=== PATIENT | male | born 1970 | race Caucasian/White ===

== ENCOUNTER 2017-04-24 17:38 | Inpatient (IN) ==
[2017-04-24] MEDS ORDERED: ONDANSETRON ODT 4 MG TABLET PO STA (17:54)
[2017-04-24] MEDS ORDERED: ONDANSETRON ODT 4 MG TABLET PO ONE (17:56)
[2017-04-24] MEDS ORDERED: ONDANSETRON 4 MG/2 ML VIAL IV STA ×2 (18:21→21:32)
[2017-04-24] MEDS ORDERED: HYDROmorphone 2 MG/1 ML VIAL IV STA ×2 (18:21→21:32)
[2017-04-24] MEDS ORDERED: ONDANSETRON 4 MG/2 ML VIAL ONE ×2 (18:21→21:31)
[2017-04-24] MEDS ORDERED: SODIUM CHLORIDE 0.9% 1,000 ML IV STA ×3 (18:21→21:37)
[2017-04-24] MEDS ORDERED: HYDROmorphone 2 MG/1 ML VIAL ONE ×2 (18:21→21:31)
[2017-04-24 18:45] LABS: Basophils % 0.2 % (0.0-0.8); Eosinophils % 0.2 % (0.00-10.9); Hematocrit 40.5 VOL% (42.0-52.0); Hemoglobin 13.4 GM/DL (14.0-18.0); Immature Granulocytes % 0.5 %; Immature Granulocytes Absolute 0.07 #; Lymphocytes # 0.4 10*3/uL (1.4-4.0); Lymphocytes % 2.8 % (21.2-54.2); Mean Corpuscular HGB Conc 33.1 GM/DL (32-36); Mean Corpuscular Hemoglobin 30 PG (27-34); Mean Corpuscular Volume 90.6 FL (87-102); Mean Platelet Volume 11.9 FL (9.6-12.0); Monocytes # 1.2 10*3/uL (0.11-0.8); Monocytes % 8.4 % (1.7-12.7); Neutrophils % 87.9 % (38.7-73.9); Platelet Count 204 T/CUMM (130-400); Red Blood Count 4.47 MC/CUMM (3.8-5.5); White Blood Count 13.7 T/CUMM (4-12)
[2017-04-24 19:06] LABS: Albumin 3.3 G/DL (3.4-5.0); Bilirubin,Total 0.6 MG/DL (0.2-1.0); Calcium 9.4 MG/DL (8.5-10.1); Osmolality,Calculated 279.7 MOS/KG (273-304); Total Protein 8.4 G/DL (6.4-8.3)
[2017-04-24 19:43] LABS: Lymphocytes 5 % (20-55); Platelet Estimate Normal; Segmented Neutrophils 89 % (50-85); Total Cells Counted 100
[2017-04-24] MEDS ORDERED: SODIUM BICARB INJ 100 MEQ in STERILE WATER INJ 400 ML IV PRN (21:31)
[2017-04-24] MEDS ORDERED: MAGNESIUM SULF RIDER 4 GM in PREMIX 1 EACH IV PRN (21:31)
[2017-04-24] MEDS ORDERED: SODIUM PHOSPHATE INJ 17.6 MMOL in SODIUM CHLORIDE 0.9% 250 ML IV PRN (21:31)
[2017-04-24] MEDS ORDERED: DEXTROSE 50% 25 GM/50 ML VIAL IV PRN (21:31)
[2017-04-24] MEDS ORDERED: ALBUTEROL 2.5 MG/3 ML NEB RESP TX PRN (21:31)
[2017-04-24 21:57] LABS: Magnesium 2.2 MG/DL (1.8-2.4); Phosphorous 3.6 MG/DL (2.5-4.9)
[2017-04-24] MEDS ORDERED: INSULIN REGULAR DRIP 100 ML IV SCH (22:00)
[2017-04-24] MEDS ORDERED: INSULIN REGULAR DRIP 100 ML IV ONE ×2 (22:43→22:47)
[2017-04-24 22:44] LABS: ABG Base Excess -5.5 MMOL/L (-2.5-2.5); ABG HCO3 19.9 MMOL/L (20-26); ABG Oxygen Saturation 95.7 % (95-100); ABG PH 7.314 (7.35-7.45); ABG PO2 77.5 MM HG (80-95); ABG TCO2 18.5 MMOL/L (23-27); Allen Test Positive; Pt O2 Delivery Device Room Air
[2017-04-24] MEDS: SODIUM CHLORIDE 0.45% 1,000 ML IV SCH (23:40)
[2017-04-24] MEDS: DEXTROSE 5% NACL 0.45% 1,000 ML IV SCH (23:55)
[2017-04-25] MEDS ORDERED: LEVOFLOXACIN INJ 100 ML IV ONE (00:50)
[2017-04-25 00:51] LABS: Calcium 7.5 MG/DL (8.5-10.1); Osmolality,Calculated 286.4 MOS/KG (273-304); Potassium 3.8 MMOL/L (3.5-5.1)
[2017-04-25] MEDS ORDERED: ONDANSETRON 4 MG/2 ML VIAL ONE ×3 (01:27→10:41)
[2017-04-25] MEDS: ONDANSETRON 4 MG/2 ML VIAL IV PRN ×4 (01:28→22:32)
[2017-04-25] MEDS ORDERED: LEVOFLOXACIN INJ 500 MG in PREMIX 1 EACH IV ONE (01:30)
[2017-04-25 01:57] LABS: Apearance,Urine CLOUDY (Clear); Bilirubin,Urine Negative (Negative); Blood, Urine Small mg/dL (Negative); Glucose,Urine (UA) >=500 mg/dL (Negative); Granular Casts,Urine 69 /LPF (0-1); Hyaline Casts,Urine 58 /LPF (0-3); Ketones,Urine 5 mg/dL (Negative); Mucus,Urine Occasional /LPF (Occasional); Nitrite,Urine Negative (Negative); Protein,Urine >=500 MG/DL; RBC,Urine 2 /HPF (0-4); Sperm,Urine Occasional /HPF (Negative); Squamous Epithelial Cell,Urine Occasional /HPF (0-10); Urine Color Yellow (Yellow); Urine Specific Gravity 1.013 (1.001-1.035); Urine Urobilinogen < 2.0 EU/DL (0.2-1.0); WBC,Urine 9 /HPF (0-6)
[2017-04-25 05:49] LABS: Calcium 8.3 MG/DL (8.5-10.1); Osmolality,Calculated 278.8 MOS/KG (273-304); Potassium 3.8 MMOL/L (3.5-5.1)
[2017-04-25 05:57] LABS: Basophils % 0.2 % (0.0-0.8); Eosinophils # 0.1 10*3/uL (0.0-0.87); Eosinophils % 0.8 % (0.00-10.9); Immature Granulocytes % 0.3 %; Immature Granulocytes Absolute 0.03 #; Lymphocytes # 0.4 10*3/uL (1.4-4.0); Lymphocytes % 4.7 % (21.2-54.2); Mean Corpuscular HGB Conc 32.7 GM/DL (32-36); Mean Corpuscular Hemoglobin 30 PG (27-34); Mean Corpuscular Volume 91.9 FL (87-102); Mean Platelet Volume 12.3 FL (9.6-12.0); Monocytes % 10.4 % (1.7-12.7); Neutrophils # 7.7 10*3/uL (1.4-7.4); Neutrophils % 83.6 % (38.7-73.9); Platelet Count 181 T/CUMM (130-400); Red Blood Count 3.59 MC/CUMM (3.8-5.5); Red Cell Distribution Width 14.3 % (9.3-17.3)
[2017-04-25 06:06] LABS: Hemoglobin 10.8 GM/DL (14.0-18.0); White Blood Count 9.2 T/CUMM (4-12)
[2017-04-25 06:18] LABS: Band Neutrophils 1 % (0-10); Eosinophils 1 % (0-10); Lymphocytes 6 % (20-55); Platelet Estimate Normal; Segmented Neutrophils 84 % (50-85); Total Cells Counted 100
[2017-04-25 06:19] LABS: Burr Cells Slight; Giant Platelets Few; Hypochromasia Slight; Ovalocytes Slight
[2017-04-25] MEDS ORDERED: PROMETHAZINE INJ 12.5 MG in SODIUM CHLORIDE 0.9% 50 ML IV PRN (08:34)
[2017-04-25] MEDS ORDERED: PROMETHAZINE 25 MG/1 ML VIAL IM STA (08:39)
[2017-04-25] MEDS ORDERED: ENOXAPARIN 40 MG/0.4 ML SYRINGE ONE (08:43)
[2017-04-25] MEDS ORDERED: PROMETHAZINE 25 MG/1 ML VIAL ONE (08:43)
[2017-04-25] MEDS: DEXTROSE 5% NACL 0.45% 1,000 ML IV SCH ×3 (08:47→22:31)
[2017-04-25] MEDS: ENOXAPARIN 40 MG/0.4 ML SYRINGE SUBCUT SCH (08:48)
[2017-04-25 11:12] LABS: Calcium 8.4 MG/DL (8.5-10.1); Osmolality,Calculated 279.7 MOS/KG (273-304); Potassium 3.7 MMOL/L (3.5-5.1)
[2017-04-25] MEDS ORDERED: GLUCAGON 1 MG VIAL IM PRN (11:50)
[2017-04-25] MEDS ORDERED: DEXTROSE 50% 25 GM/50 ML VIAL IV PRN (11:50)
[2017-04-25] MEDS ORDERED: PROMETHAZINE 25 MG/1 ML VIAL IM PRN (11:53)
[2017-04-25] MEDS: SODIUM CHLORIDE 0.45% 1,000 ML IV SCH ×2 (11:57→13:56)
[2017-04-25] MEDS: INSULIN LISPRO 100 UNIT/ML SUBCUT SCH ×3 (13:49→21:25)
[2017-04-25 16:02] LABS: Potassium 4.1 MMOL/L (3.5-5.1)
[2017-04-25] MEDS ORDERED: INSULIN NPH 100 UNIT/ML SUBCUT SCH (16:30)
[2017-04-25] MEDS: hydrALAZINE 20 MG/1 ML VIAL IV PRN (17:09)
[2017-04-25] MEDS ORDERED: METOCLOPRAMIDE 10 MG/2 ML VIAL IV SCH (18:00)
[2017-04-25] MEDS: PANTOPRAZOLE 40 MG VIAL IV SCH (21:24)
[2017-04-26] MEDS: hydrALAZINE 20 MG/1 ML VIAL IV PRN (00:37)
[2017-04-26] MEDS ORDERED: LEVOFLOXACIN INJ 250 MG in PREMIX 1 EACH IV ONE (01:30)
[2017-04-26] MEDS: INSULIN LISPRO 100 UNIT/ML SUBCUT SCH ×6 (02:47→22:52)
[2017-04-26 04:28] LABS: Basophils % 0.2 % (0.0-0.8); Eosinophils # 0.2 10*3/uL (0.0-0.87); Eosinophils % 1.5 % (0.00-10.9); Hematocrit 30.9 VOL% (42.0-52.0); Hemoglobin 10.4 GM/DL (14.0-18.0); Immature Granulocytes % 0.4 %; Immature Granulocytes Absolute 0.04 #; Lymphocytes # 0.7 10*3/uL (1.4-4.0); Mean Corpuscular HGB Conc 33.7 GM/DL (32-36); Mean Corpuscular Hemoglobin 31 PG (27-34); Mean Corpuscular Volume 90.9 FL (87-102); Mean Platelet Volume 11.4 FL (9.6-12.0); Monocytes # 1.2 10*3/uL (0.11-0.8); Monocytes % 11.4 % (1.7-12.7); Neutrophils # 8.7 10*3/uL (1.4-7.4); Neutrophils % 80.5 % (38.7-73.9); Platelet Count 223 T/CUMM (130-400); Red Cell Distribution Width 14.2 % (9.3-17.3); White Blood Count 10.8 T/CUMM (4-12)
[2017-04-26 05:06] LABS: Calcium 8.1 MG/DL (8.5-10.1); Osmolality,Calculated 279.8 MOS/KG (273-304); Potassium 3.6 MMOL/L (3.5-5.1)
[2017-04-26] MEDS: ONDANSETRON 4 MG/2 ML VIAL IV PRN ×2 (07:24→20:48)
[2017-04-26] MEDS ORDERED: INSULIN NPH 100 UNIT/ML SUBCUT SCH (07:30)
[2017-04-26] MEDS ORDERED: BISACODYL 10 MG SUPP RECTAL ONE (08:19)
[2017-04-26] MEDS: PANTOPRAZOLE 40 MG VIAL IV SCH ×2 (09:56→20:53)
[2017-04-26] MEDS: ENOXAPARIN 40 MG/0.4 ML SYRINGE SUBCUT SCH (09:58)
[2017-04-26] MEDS: DEXTROSE 5% NACL 0.45% 1,000 ML IV SCH ×2 (12:16→15:00)
[2017-04-26] MEDS ORDERED: ERYTHROMYCIN INJ 250 MG in SODIUM CHLORIDE 0.9% 100 ML IV SCH (17:00)
[2017-04-26] MEDS: INSULIN NPH 100 UNIT/ML SUBCUT SCH (17:13)
[2017-04-26] MEDS: AZITHROMYCIN IV SCH (18:18)
[2017-04-26] MEDS: SODIUM CHLORIDE 0.9% IV SCH (18:18)
[2017-04-27] MEDS ORDERED: KETOROLAC 15 MG/1 ML VIAL IV ONE (01:37)
[2017-04-27] MEDS: INSULIN LISPRO 100 UNIT/ML SUBCUT SCH ×6 (02:02→22:18)
[2017-04-27] MEDS: DEXTROSE 5% NACL 0.45% 1,000 ML IV SCH ×2 (02:02→07:00)
[2017-04-27 05:07] LABS: Calcium 7.9 MG/DL (8.5-10.1); Magnesium 1.6 MG/DL (1.8-2.4); Osmolality,Calculated 277.4 MOS/KG (273-304); Potassium 3.2 MMOL/L (3.5-5.1)
[2017-04-27] MEDS: SODIUM CHLORIDE 0.9% IV SCH (05:49)
[2017-04-27] MEDS: AZITHROMYCIN IV SCH (05:49)
[2017-04-27] MEDS: hydrALAZINE 20 MG/1 ML VIAL IV PRN ×2 (07:32→21:27)
[2017-04-27] MEDS: ONDANSETRON 4 MG/2 ML VIAL IV PRN ×3 (08:13→21:24)
[2017-04-27] MEDS: MAGNESIUM SULF RIDER 2 GM in PREMIX 1 EACH IV PRN (08:22)
[2017-04-27] MEDS ORDERED: ACETAMINOPHEN 650 MG SUPP RECTAL PRN (09:36)
[2017-04-27] MEDS: PANTOPRAZOLE 40 MG VIAL IV SCH ×2 (09:47→21:30)
[2017-04-27] MEDS: ENOXAPARIN 40 MG/0.4 ML SYRINGE SUBCUT SCH (09:51)
[2017-04-27] MEDS: ACETAMINOPHEN 325 MG TABLET PO PRN ×2 (09:54→18:04)
[2017-04-27] MEDS: INSULIN NPH 100 UNIT/ML SUBCUT SCH ×2 (10:37→18:09)
[2017-04-27] MEDS: SODIUM CHLOR 0.9% KCL 20 MEQ 20 MEQ/1,000 ML BAG IV SCH ×2 (10:51→23:52)
[2017-04-27] MEDS: POTASSIUM CHLORIDE RIDER 10 MEQ in PREMIX 1 EACH IV PRN ×4 (10:54→21:33)
[2017-04-28] MEDS: INSULIN LISPRO 100 UNIT/ML SUBCUT SCH ×6 (02:49→21:59)
[2017-04-28] MEDS ORDERED: AZITHROMYCIN INJ 250 MG in SODIUM CHLORIDE 0.9% 150 ML IV SCH (06:00)
[2017-04-28] MEDS ORDERED: FAMOTIDINE 20 MG/2 ML VIAL IV ONE (06:00)
[2017-04-28 06:30] LABS: Basophils % 0.2 % (0.0-0.8); Eosinophils # 0.1 10*3/uL (0.0-0.87); Eosinophils % 1.1 % (0.00-10.9); Hematocrit 28.6 VOL% (42.0-52.0); Hemoglobin 9.5 GM/DL (14.0-18.0); Immature Granulocytes % 0.8 %; Immature Granulocytes Absolute 0.09 #; Lymphocytes # 0.8 10*3/uL (1.4-4.0); Lymphocytes % 7.9 % (21.2-54.2); Mean Corpuscular HGB Conc 33.2 GM/DL (32-36); Mean Corpuscular Hemoglobin 30 PG (27-34); Mean Corpuscular Volume 90.5 FL (87-102); Mean Platelet Volume 11.1 FL (9.6-12.0); Monocytes # 1.3 10*3/uL (0.11-0.8); Neutrophils # 8.4 10*3/uL (1.4-7.4); Platelet Count 266 T/CUMM (130-400); Red Blood Count 3.16 MC/CUMM (3.8-5.5); Red Cell Distribution Width 14.3 % (9.3-17.3); White Blood Count 10.7 T/CUMM (4-12)
[2017-04-28] MEDS: ONDANSETRON 4 MG/2 ML VIAL IV PRN ×2 (07:18→17:00)
[2017-04-28] MEDS: INSULIN NPH 100 UNIT/ML SUBCUT SCH ×2 (08:47→17:12)
[2017-04-28] MEDS: ENOXAPARIN 40 MG/0.4 ML SYRINGE SUBCUT SCH (10:05)
[2017-04-28] MEDS: PANTOPRAZOLE 40 MG VIAL IV SCH ×2 (10:05→20:26)
[2017-04-28] MEDS ORDERED: PROPOFOL 200 MG/20 ML VIAL IV ONE ×2 (10:06→10:08)
[2017-04-28] MEDS ORDERED: PHENYLEPHRINE 0.5% NASAL SPRAY 15 ML BOTTLE BOTH NARES ONE (10:07)
[2017-04-28] MEDS: PROMETHAZINE INJ 25 MG in SODIUM CHLORIDE 0.9% 50 ML IV PRN ×2 (12:40→20:24)
[2017-04-28] MEDS: SODIUM CHLOR 0.9% KCL 20 MEQ 20 MEQ/1,000 ML BAG IV SCH ×2 (14:37→19:03)
[2017-04-28] MEDS: hydrALAZINE 20 MG/1 ML VIAL IV PRN (20:24)
[2017-04-29] MEDS: SODIUM CHLOR 0.9% KCL 20 MEQ 20 MEQ/1,000 ML BAG IV SCH ×4 (00:37→22:36)
[2017-04-29] MEDS: INSULIN LISPRO 100 UNIT/ML SUBCUT SCH ×6 (02:44→22:37)
[2017-04-29] MEDS: hydrALAZINE 20 MG/1 ML VIAL IV PRN ×3 (02:45→22:42)
[2017-04-29 04:45] LABS: Basophils % 0.2 % (0.0-0.8); Eosinophils # 0.1 10*3/uL (0.0-0.87); Eosinophils % 0.6 % (0.00-10.9); Hematocrit 29.3 VOL% (42.0-52.0); Hemoglobin 9.6 GM/DL (14.0-18.0); Immature Granulocytes % 1.4 %; Immature Granulocytes Absolute 0.19 #; Lymphocytes # 0.8 10*3/uL (1.4-4.0); Lymphocytes % 5.4 % (21.2-54.2); Mean Corpuscular HGB Conc 32.8 GM/DL (32-36); Mean Corpuscular Hemoglobin 30 PG (27-34); Mean Corpuscular Volume 92.4 FL (87-102); Monocytes # 1.5 10*3/uL (0.11-0.8); Monocytes % 10.5 % (1.7-12.7); Neutrophils # 11.5 10*3/uL (1.4-7.4); Neutrophils % 81.9 % (38.7-73.9); Platelet Count 325 T/CUMM (130-400); Red Blood Count 3.17 MC/CUMM (3.8-5.5); Red Cell Distribution Width 14.8 % (9.3-17.3)
[2017-04-29 05:08] LABS: Calcium 8.4 MG/DL (8.5-10.1); Magnesium 1.9 MG/DL (1.8-2.4); Osmolality,Calculated 284.3 MOS/KG (273-304); Potassium 4.1 MMOL/L (3.5-5.1)
[2017-04-29] MEDS: PROMETHAZINE INJ 25 MG in SODIUM CHLORIDE 0.9% 50 ML IV PRN ×2 (09:12→20:39)
[2017-04-29] MEDS: ENOXAPARIN 40 MG/0.4 ML SYRINGE SUBCUT SCH (09:14)
[2017-04-29] MEDS: PANTOPRAZOLE 40 MG VIAL IV SCH ×2 (09:15→20:12)
[2017-04-29] MEDS: INSULIN NPH 100 UNIT/ML SUBCUT SCH ×2 (09:18→16:50)
[2017-04-29] MEDS: ONDANSETRON 4 MG/2 ML VIAL IV PRN (16:22)
[2017-04-30] MEDS: INSULIN LISPRO 100 UNIT/ML SUBCUT SCH ×6 (01:22→22:44)
[2017-04-30 03:20] LABS: Basophils % 0.2 % (0.0-0.8); Hematocrit 29.3 VOL% (42.0-52.0); Hemoglobin 9.5 GM/DL (14.0-18.0); Immature Granulocytes % 2.2 %; Immature Granulocytes Absolute 0.36 #; Lymphocytes # 0.7 10*3/uL (1.4-4.0); Lymphocytes % 4.5 % (21.2-54.2); Mean Corpuscular HGB Conc 32.4 GM/DL (32-36); Mean Corpuscular Hemoglobin 30 PG (27-34); Mean Platelet Volume 10.7 FL (9.6-12.0); Monocytes # 1.7 10*3/uL (0.11-0.8); Monocytes % 10.2 % (1.7-12.7); Neutrophils # 13.5 10*3/uL (1.4-7.4); Neutrophils % 82.9 % (38.7-73.9); Platelet Count 390 T/CUMM (130-400); Red Blood Count 3.15 MC/CUMM (3.8-5.5); Red Cell Distribution Width 15.4 % (9.3-17.3); White Blood Count 16.3 T/CUMM (4-12)
[2017-04-30 03:46] LABS: Calcium 8.9 MG/DL (8.5-10.1); Osmolality,Calculated 293.7 MOS/KG (273-304); Potassium 4.5 MMOL/L (3.5-5.1)
[2017-04-30 04:08] LABS: Lymphocytes 11 % (20-55); Myelocytes 1 %; Platelet Estimate Normal; Segmented Neutrophils 83 % (50-85); Total Cells Counted 100
[2017-04-30] MEDS: SODIUM CHLOR 0.9% KCL 20 MEQ 20 MEQ/1,000 ML BAG IV SCH ×3 (06:06→19:04)
[2017-04-30] MEDS: hydrALAZINE 20 MG/1 ML VIAL IV PRN (06:06)
[2017-04-30] MEDS: ONDANSETRON 4 MG/2 ML VIAL IV PRN (09:14)
[2017-04-30] MEDS: PANTOPRAZOLE 40 MG VIAL IV SCH ×2 (09:18→20:26)
[2017-04-30] MEDS: ENOXAPARIN 40 MG/0.4 ML SYRINGE SUBCUT SCH (09:21)
[2017-04-30] MEDS: ACETAMINOPHEN 325 MG TABLET PO PRN (09:22)
[2017-04-30] MEDS: INSULIN NPH 100 UNIT/ML SUBCUT SCH ×2 (09:27→17:00)
[2017-04-30] MEDS ORDERED: cefOXitin 2,000 MG in SYRINGE 1 EACH IV ONE (10:16)
[2017-04-30] MEDS: LACTATED RINGERS 1,000 ML IV SCH ×3 (14:28→16:31)
[2017-04-30] MEDS ORDERED: SUGAMMADEX 200 MG/2 ML VIAL IV ONE (15:53)
[2017-04-30] MEDS ORDERED: ONDANSETRON 4 MG/2 ML VIAL ONE ×2 (16:17→16:24)
[2017-04-30] MEDS ORDERED: HYDROmorphone 2 MG/1 ML VIAL ONE (16:17)
[2017-04-30] MEDS: HYDROmorphone 2 MG/1 ML VIAL IV PRN ×4 (16:18→16:33)
[2017-04-30] MEDS ORDERED: ONDANSETRON 4 MG/2 ML VIAL IV PRN (16:18)
[2017-04-30] MEDS ORDERED: PROPOFOL 200 MG/20 ML VIAL IV ONE (16:23)
[2017-04-30] MEDS ORDERED: SUCCINYLCHOLINE 200 MG/10 ML VIAL ONE (16:24)
[2017-04-30] MEDS ORDERED: fentaNYL 100 MCG/2 ML VIAL ONE (16:24)
[2017-04-30] MEDS ORDERED: DESFLURANE 1 UNIT/15 MINUTE INH ONE (16:24)
[2017-04-30] MEDS ORDERED: MIDAZOLAM 2 MG/2 ML VIAL ONE (16:24)
[2017-04-30] MEDS ORDERED: ROCURONIUM 100 MG/10 ML VIAL IV ONE (16:24)
[2017-04-30 16:27] LABS: Apearance,Urine CLEAR (Clear); Bilirubin,Urine Negative (Negative); Blood, Urine Small mg/dL (Negative); Glucose,Urine (UA) >=500 mg/dL (Negative); Ketones,Urine 80 mg/dL (Negative); Mucus,Urine Occasional /LPF (Occasional); Nitrite,Urine Negative (Negative); Protein,Urine 100 MG/DL; RBC,Urine 20 /HPF (0-4); Urine Color Yellow (Yellow); Urine Specific Gravity 1.011 (1.001-1.035); Urine Urobilinogen < 2.0 EU/DL (0.2-1.0); WBC,Urine 3 /HPF (0-6)
[2017-04-30] MEDS ORDERED: NALOXONE 0.4 MG/ML VIAL IV PRN (16:51)
[2017-04-30] MEDS: HYDROmorphone PCA 30 MG/30 ML SYRINGE IV SCH (16:58)
[2017-04-30] MEDS: CIPROFLOXACIN INJ 400 MG in PREMIX 1 EACH IV SCH (18:28)
[2017-04-30] MEDS: metroNIDAZOLE INJ 500 MG in PREMIX 1 EACH IV SCH (20:26)
[2017-05-01] MEDS: metroNIDAZOLE INJ 500 MG in PREMIX 1 EACH IV SCH ×4 (01:03→20:06)
[2017-05-01] MEDS: INSULIN LISPRO 100 UNIT/ML SUBCUT SCH ×6 (01:03→21:43)
[2017-05-01] MEDS: hydrALAZINE 20 MG/1 ML VIAL IV PRN (01:47)
[2017-05-01] MEDS: SODIUM CHLOR 0.9% KCL 20 MEQ 20 MEQ/1,000 ML BAG IV SCH ×3 (05:49→16:52)
[2017-05-01] MEDS: CIPROFLOXACIN INJ 400 MG in PREMIX 1 EACH IV SCH ×2 (06:01→16:53)
[2017-05-01 06:19] LABS: Basophils % 0.2 % (0.0-0.8); Immature Granulocytes % 1.3 %; Immature Granulocytes Absolute 0.21 #; Lymphocytes # 0.5 10*3/uL (1.4-4.0); Lymphocytes % 3.2 % (21.2-54.2); Mean Corpuscular HGB Conc 32.1 GM/DL (32-36); Mean Corpuscular Hemoglobin 30 PG (27-34); Mean Corpuscular Volume 94.3 FL (87-102); Mean Platelet Volume 11.2 FL (9.6-12.0); Monocytes # 1.4 10*3/uL (0.11-0.8); Monocytes % 8.2 % (1.7-12.7); Neutrophils # 14.5 10*3/uL (1.4-7.4); Neutrophils % 87.1 % (38.7-73.9); Platelet Count 418 T/CUMM (130-400); Red Blood Count 2.97 MC/CUMM (3.8-5.5); Red Cell Distribution Width 16.1 % (9.3-17.3); White Blood Count 16.6 T/CUMM (4-12)
[2017-05-01 06:47] LABS: Band Neutrophils 3 % (0-10); Giant Platelets Few; Hypochromasia 1+; Lymphocytes 3 % (20-55); Ovalocytes Slight; Platelet Estimate Adequate; Segmented Neutrophils 86 % (50-85); Total Cells Counted 100
[2017-05-01 06:52] LABS: Calcium 8.6 MG/DL (8.5-10.1); Osmolality,Calculated 296.6 MOS/KG (273-304); Potassium 4.9 MMOL/L (3.5-5.1)
[2017-05-01] MEDS: ONDANSETRON 4 MG/2 ML VIAL IV PRN ×2 (07:24→17:41)
[2017-05-01] MEDS: INSULIN NPH 100 UNIT/ML SUBCUT SCH ×2 (08:38→16:55)
[2017-05-01] MEDS: ENOXAPARIN 40 MG/0.4 ML SYRINGE SUBCUT SCH (08:38)
[2017-05-01] MEDS: PANTOPRAZOLE 40 MG VIAL IV SCH ×2 (08:39→21:39)
[2017-05-01] MEDS: PROMETHAZINE 25 MG/1 ML VIAL IM PRN (10:57)
[2017-05-01] MEDS: HYDROmorphone PCA 30 MG/30 ML SYRINGE IV SCH (18:01)
[2017-05-02] MEDS: INSULIN LISPRO 100 UNIT/ML SUBCUT SCH ×6 (01:32→22:46)
[2017-05-02] MEDS: hydrALAZINE 20 MG/1 ML VIAL IV PRN ×2 (01:33→20:30)
[2017-05-02] MEDS: ONDANSETRON 4 MG/2 ML VIAL IV PRN ×3 (01:33→23:11)
[2017-05-02] MEDS: metroNIDAZOLE INJ 500 MG in PREMIX 1 EACH IV SCH ×4 (01:33→20:29)
[2017-05-02] MEDS: SODIUM CHLOR 0.9% KCL 20 MEQ 20 MEQ/1,000 ML BAG IV SCH ×4 (03:49→19:01)
[2017-05-02] MEDS: PROMETHAZINE 25 MG/1 ML VIAL IM PRN (06:01)
[2017-05-02] MEDS: CIPROFLOXACIN INJ 400 MG in PREMIX 1 EACH IV SCH ×2 (06:01→16:57)
[2017-05-02 07:20] LABS: Basophils % 0.2 % (0.0-0.8); Eosinophils % 0.1 % (0.00-10.9); Hematocrit 29.2 VOL% (42.0-52.0); Immature Granulocytes % 1.5 %; Immature Granulocytes Absolute 0.25 #; Lymphocytes # 0.4 10*3/uL (1.4-4.0); Lymphocytes % 2.6 % (21.2-54.2); Mean Corpuscular HGB Conc 30.8 GM/DL (32-36); Mean Corpuscular Hemoglobin 29 PG (27-34); Mean Corpuscular Volume 94.5 FL (87-102); Mean Platelet Volume 10.5 FL (9.6-12.0); Monocytes % 5.7 % (1.7-12.7); Neutrophils # 15.1 10*3/uL (1.4-7.4); Neutrophils % 89.9 % (38.7-73.9); Platelet Count 415 T/CUMM (130-400); Red Blood Count 3.09 MC/CUMM (3.8-5.5); Red Cell Distribution Width 16.3 % (9.3-17.3); White Blood Count 16.8 T/CUMM (4-12)
[2017-05-02 07:42] LABS: Band Neutrophils 3 % (0-10); Lymphocytes 2 % (20-55); Segmented Neutrophils 94 % (50-85); Total Cells Counted 100
[2017-05-02 07:43] LABS: Calcium 8.4 MG/DL (8.5-10.1); Hypochromasia 1+; Microcytosis 1+; Osmolality,Calculated 301.3 MOS/KG (273-304); Platelet Estimate Increased; Potassium 4.4 MMOL/L (3.5-5.1)
[2017-05-02] MEDS: PANTOPRAZOLE 40 MG VIAL IV SCH ×2 (08:42→20:29)
[2017-05-02] MEDS: INSULIN NPH 100 UNIT/ML SUBCUT SCH ×2 (08:45→16:54)
[2017-05-02] MEDS: ENOXAPARIN 40 MG/0.4 ML SYRINGE SUBCUT SCH (08:47)
[2017-05-02] MEDS: HYDROmorphone PCA 30 MG/30 ML SYRINGE IV SCH (16:56)
[2017-05-03] MEDS: SODIUM CHLOR 0.9% KCL 20 MEQ 20 MEQ/1,000 ML BAG IV SCH ×3 (00:05→11:13)
[2017-05-03] MEDS: INSULIN LISPRO 100 UNIT/ML SUBCUT SCH ×6 (02:08→20:59)
[2017-05-03] MEDS: metroNIDAZOLE INJ 500 MG in PREMIX 1 EACH IV SCH ×4 (02:10→14:34)
[2017-05-03] MEDS: DEXTROSE 50% 25 GM/50 ML VIAL IV PRN ×2 (02:44→18:04)
[2017-05-03] MEDS: CIPROFLOXACIN INJ 400 MG in PREMIX 1 EACH IV SCH ×2 (05:28→18:04)
[2017-05-03] MEDS: PROMETHAZINE 25 MG/1 ML VIAL IM PRN ×2 (05:57→11:29)
[2017-05-03] MEDS: hydrALAZINE 20 MG/1 ML VIAL IV PRN (05:57)
[2017-05-03 07:09] LABS: Basophils % 0.1 % (0.0-0.8); Eosinophils # 0.2 10*3/uL (0.0-0.87); Eosinophils % 1.1 % (0.00-10.9); Hematocrit 29.3 VOL% (42.0-52.0); Hemoglobin 9.4 GM/DL (14.0-18.0); Immature Granulocytes % 1.1 %; Immature Granulocytes Absolute 0.15 #; Lymphocytes # 0.7 10*3/uL (1.4-4.0); Lymphocytes % 4.7 % (21.2-54.2); Mean Corpuscular HGB Conc 32.1 GM/DL (32-36); Mean Corpuscular Hemoglobin 30 PG (27-34); Mean Corpuscular Volume 93.3 FL (87-102); Monocytes # 0.7 10*3/uL (0.11-0.8); Monocytes % 5.2 % (1.7-12.7); Neutrophils # 12.3 10*3/uL (1.4-7.4); Neutrophils % 87.8 % (38.7-73.9); Platelet Count 421 T/CUMM (130-400); Red Blood Count 3.14 MC/CUMM (3.8-5.5)
[2017-05-03 07:28] LABS: Calcium 8.4 MG/DL (8.5-10.1); Osmolality,Calculated 295.3 MOS/KG (273-304)
[2017-05-03 07:36] LABS: Giant Platelets Few; Hypochromasia 1+; Lymphocytes 4 % (20-55); Microcytosis Slight; Platelet Estimate Adequate; Segmented Neutrophils 93 % (50-85); Total Cells Counted 100
[2017-05-03] MEDS: INSULIN NPH 100 UNIT/ML SUBCUT SCH ×2 (09:15→17:58)
[2017-05-03] MEDS: ENOXAPARIN 40 MG/0.4 ML SYRINGE SUBCUT SCH (09:15)
[2017-05-03] MEDS: PANTOPRAZOLE 40 MG VIAL IV SCH ×2 (11:12→21:43)
[2017-05-03] MEDS ORDERED: METOPROLOL TARTRATE 5 MG/5 ML VIAL IV ONE (14:20)
[2017-05-03] MEDS: CARVEDILOL 25 MG TABLET PO SCH ×2 (14:33→21:43)
[2017-05-03] MEDS: ACETAMINOPHEN 325 MG TABLET PO PRN (21:42)
[2017-05-04] MEDS: metroNIDAZOLE INJ 500 MG in PREMIX 1 EACH IV SCH ×3 (01:11→10:11)
[2017-05-04] MEDS: INSULIN LISPRO 100 UNIT/ML SUBCUT SCH ×6 (01:11→20:23)
[2017-05-04] MEDS: SODIUM CHLOR 0.9% KCL 20 MEQ 20 MEQ/1,000 ML BAG IV SCH ×4 (03:08→14:37)
[2017-05-04 05:46] LABS: Basophils % 0.2 % (0.0-0.8); Eosinophils # 0.3 10*3/uL (0.0-0.87); Eosinophils % 4.2 % (0.00-10.9); Hematocrit 26.4 VOL% (42.0-52.0); Hemoglobin 8.6 GM/DL (14.0-18.0); Immature Granulocytes % 0.7 %; Immature Granulocytes Absolute 0.06 #; Lymphocytes # 0.8 10*3/uL (1.4-4.0); Lymphocytes % 9.2 % (21.2-54.2); Mean Corpuscular HGB Conc 32.6 GM/DL (32-36); Mean Corpuscular Hemoglobin 30 PG (27-34); Mean Platelet Volume 10.9 FL (9.6-12.0); Monocytes # 0.6 10*3/uL (0.11-0.8); Monocytes % 7.6 % (1.7-12.7); Neutrophils # 6.4 10*3/uL (1.4-7.4); Neutrophils % 78.1 % (38.7-73.9); Platelet Count 357 T/CUMM (130-400); Red Blood Count 2.87 MC/CUMM (3.8-5.5); Red Cell Distribution Width 15.7 % (9.3-17.3); White Blood Count 8.1 T/CUMM (4-12)
[2017-05-04] MEDS: CIPROFLOXACIN INJ 400 MG in PREMIX 1 EACH IV SCH (05:54)
[2017-05-04 06:05] LABS: Calcium 7.8 MG/DL (8.5-10.1); Osmolality,Calculated 294.1 MOS/KG (273-304); Potassium 3.8 MMOL/L (3.5-5.1)
[2017-05-04] MEDS: HYDROmorphone 2 MG/1 ML VIAL IV PRN ×3 (07:48→18:33)
[2017-05-04] MEDS: ONDANSETRON 4 MG/2 ML VIAL IV PRN ×3 (08:02→18:34)
[2017-05-04] MEDS: ENOXAPARIN 40 MG/0.4 ML SYRINGE SUBCUT SCH (10:09)
[2017-05-04] MEDS: PANTOPRAZOLE 40 MG VIAL IV SCH ×2 (10:09→21:28)
[2017-05-04] MEDS: INSULIN NPH 100 UNIT/ML SUBCUT SCH ×2 (10:10→15:32)
[2017-05-04] MEDS: CARVEDILOL 25 MG TABLET PO SCH ×2 (10:11→18:23)
[2017-05-04] MEDS: PIPERACILLIN/TAZOBACTAM 3,375 MG in SODIUM CHLORIDE 0.9% 100 ML IV SCH ×2 (14:36→21:28)
[2017-05-04] MEDS: DEXTROSE 50% 25 GM/50 ML VIAL IV PRN (23:18)
[2017-05-05] MEDS: INSULIN LISPRO 100 UNIT/ML SUBCUT SCH ×6 (00:56→22:03)
[2017-05-05] MEDS: HYDROmorphone 2 MG/1 ML VIAL IV PRN (04:58)
[2017-05-05] MEDS: ONDANSETRON 4 MG/2 ML VIAL IV PRN (04:58)
[2017-05-05] MEDS: PIPERACILLIN/TAZOBACTAM 3,375 MG in SODIUM CHLORIDE 0.9% 100 ML IV SCH ×3 (05:06→22:03)
[2017-05-05 05:36] LABS: Basophils % 0.4 % (0.0-0.8); Eosinophils # 0.5 10*3/uL (0.0-0.87); Eosinophils % 5.6 % (0.00-10.9); Hematocrit 28.6 VOL% (42.0-52.0); Hemoglobin 9.2 GM/DL (14.0-18.0); Immature Granulocytes % 0.7 %; Immature Granulocytes Absolute 0.06 #; Lymphocytes % 11.8 % (21.2-54.2); Mean Corpuscular HGB Conc 32.2 GM/DL (32-36); Mean Corpuscular Hemoglobin 30 PG (27-34); Mean Corpuscular Volume 93.8 FL (87-102); Mean Platelet Volume 11.3 FL (9.6-12.0); Monocytes # 0.7 10*3/uL (0.11-0.8); Monocytes % 8.1 % (1.7-12.7); Neutrophils # 5.9 10*3/uL (1.4-7.4); Neutrophils % 73.4 % (38.7-73.9); Platelet Count 371 T/CUMM (130-400); Red Blood Count 3.05 MC/CUMM (3.8-5.5)
[2017-05-05 06:21] LABS: Calcium 7.7 MG/DL (8.5-10.1); Magnesium 1.6 MG/DL (1.8-2.4); Osmolality,Calculated 289.4 MOS/KG (273-304); Potassium 4.2 MMOL/L (3.5-5.1)
[2017-05-05] MEDS ORDERED: INSULIN NPH 100 UNIT/ML SUBCUT SCH ×2 (08:33)
[2017-05-05] MEDS ORDERED: AZITHROMYCIN INJ 500 MG in SODIUM CHLORIDE 0.9% 250 ML IV SCH (09:00)
[2017-05-05] MEDS ORDERED: MORPHINE 2 MG/1 ML SYRINGE IV PRN (10:37)
[2017-05-05] MEDS ORDERED: HYDROmorphone 2 MG/1 ML VIAL IV PRN (10:42)
[2017-05-05] MEDS: CARVEDILOL 25 MG TABLET PO SCH ×2 (11:07→17:30)
[2017-05-05] MEDS: ENOXAPARIN 40 MG/0.4 ML SYRINGE SUBCUT SCH (11:08)
[2017-05-05] MEDS: PANTOPRAZOLE 40 MG VIAL IV SCH ×2 (11:08→22:00)
[2017-05-05] MEDS: CHOLESTYRAMINE 4 GM PACK PO SCH ×2 (11:23→22:00)
[2017-05-05] MEDS: MAGNESIUM SULF RIDER 2 GM in PREMIX 1 EACH IV PRN (11:23)
[2017-05-05] MEDS: SODIUM CHLOR 0.45% KCL 20 MEQ 20 MEQ/1,000 ML BAG IV SCH (13:20)
[2017-05-05] MEDS: INSULIN NPH/REGULAR 70/30 100 UNIT/ML SUBCUT SCH (17:06)
[2017-05-05] MEDS: LACTOBACILLUS ACIDOPHILUS/BULGARICUS CAPLET PO SCH (22:01)
[2017-05-06] MEDS: ONDANSETRON 4 MG/2 ML VIAL IV PRN ×2 (00:30→08:51)
[2017-05-06] MEDS: INSULIN LISPRO 100 UNIT/ML SUBCUT SCH ×6 (02:00→20:11)
[2017-05-06 04:00] LABS: Basophils % 0.4 % (0.0-0.8); Eosinophils # 0.4 10*3/uL (0.0-0.87); Eosinophils % 5.2 % (0.00-10.9); Hematocrit 28.1 VOL% (42.0-52.0); Immature Granulocytes % 0.7 %; Immature Granulocytes Absolute 0.06 #; Lymphocytes # 1.2 10*3/uL (1.4-4.0); Lymphocytes % 14.4 % (21.2-54.2); Mean Corpuscular Hemoglobin 30 PG (27-34); Mean Corpuscular Volume 92.1 FL (87-102); Mean Platelet Volume 11.1 FL (9.6-12.0); Monocytes # 0.8 10*3/uL (0.11-0.8); Monocytes % 9.7 % (1.7-12.7); Neutrophils # 5.6 10*3/uL (1.4-7.4); Neutrophils % 69.6 % (38.7-73.9); Platelet Count 403 T/CUMM (130-400); Red Blood Count 3.05 MC/CUMM (3.8-5.5)
[2017-05-06 05:07] LABS: Calcium 7.3 MG/DL (8.5-10.1); Magnesium 1.8 MG/DL (1.8-2.4); Osmolality,Calculated 285.8 MOS/KG (273-304); Potassium 4.2 MMOL/L (3.5-5.1)
[2017-05-06] MEDS: PIPERACILLIN/TAZOBACTAM 3,375 MG in SODIUM CHLORIDE 0.9% 100 ML IV SCH ×3 (05:37→21:28)
[2017-05-06] MEDS ORDERED: MORPHINE 2 MG/1 ML SYRINGE IV PRN (08:50)
[2017-05-06] MEDS: PANTOPRAZOLE 40 MG VIAL IV SCH ×2 (08:52→21:27)
[2017-05-06] MEDS: LACTOBACILLUS ACIDOPHILUS/BULGARICUS CAPLET PO SCH ×2 (08:53→21:26)
[2017-05-06] MEDS: CARVEDILOL 25 MG TABLET PO SCH ×2 (08:53→20:12)
[2017-05-06] MEDS: CHOLESTYRAMINE 4 GM PACK PO SCH ×2 (08:53→21:25)
[2017-05-06] MEDS: ENOXAPARIN 40 MG/0.4 ML SYRINGE SUBCUT SCH (14:07)
[2017-05-06] MEDS: INSULIN NPH/REGULAR 70/30 100 UNIT/ML SUBCUT SCH (20:11)
[2017-05-07] MEDS: INSULIN LISPRO 100 UNIT/ML SUBCUT SCH ×8 (01:12→22:25)
[2017-05-07 05:04] LABS: Basophils % 0.4 % (0.0-0.8); Eosinophils # 0.4 10*3/uL (0.0-0.87); Eosinophils % 5.1 % (0.00-10.9); Hematocrit 26.9 VOL% (42.0-52.0); Hemoglobin 8.6 GM/DL (14.0-18.0); Immature Granulocytes % 0.7 %; Immature Granulocytes Absolute 0.05 #; Lymphocytes % 13.9 % (21.2-54.2); Mean Corpuscular Hemoglobin 30 PG (27-34); Mean Corpuscular Volume 93.1 FL (87-102); Mean Platelet Volume 11.4 FL (9.6-12.0); Monocytes # 0.8 10*3/uL (0.11-0.8); Monocytes % 11.7 % (1.7-12.7); Neutrophils # 4.9 10*3/uL (1.4-7.4); Neutrophils % 68.2 % (38.7-73.9); Platelet Count 369 T/CUMM (130-400); Red Blood Count 2.89 MC/CUMM (3.8-5.5); Red Cell Distribution Width 15.7 % (9.3-17.3); White Blood Count 7.1 T/CUMM (4-12)
[2017-05-07 05:19] LABS: Calcium 7.4 MG/DL (8.5-10.1); Magnesium 1.9 MG/DL (1.8-2.4); Osmolality,Calculated 281.1 MOS/KG (273-304); Potassium 4.5 MMOL/L (3.5-5.1)
[2017-05-07] MEDS: PIPERACILLIN/TAZOBACTAM 3,375 MG in SODIUM CHLORIDE 0.9% 100 ML IV SCH ×3 (05:45→22:23)
[2017-05-07] MEDS: PANTOPRAZOLE 40 MG VIAL IV SCH ×2 (09:40→22:24)
[2017-05-07] MEDS: LACTOBACILLUS ACIDOPHILUS/BULGARICUS CAPLET PO SCH ×2 (09:42→22:24)
[2017-05-07] MEDS: FUROSEMIDE 40 MG TABLET PO SCH (09:42)
[2017-05-07] MEDS: ENOXAPARIN 40 MG/0.4 ML SYRINGE SUBCUT SCH (09:43)
[2017-05-07] MEDS: CARVEDILOL 25 MG TABLET PO SCH ×2 (09:43→19:06)
[2017-05-07] MEDS: CHOLESTYRAMINE 4 GM PACK PO SCH ×2 (09:45→22:25)
[2017-05-07] MEDS: INSULIN NPH/REGULAR 70/30 100 UNIT/ML SUBCUT SCH ×2 (18:33→19:08)
[2017-05-08] MEDS: INSULIN LISPRO 100 UNIT/ML SUBCUT SCH ×6 (00:30→22:05)
[2017-05-08 05:23] LABS: Basophils % 0.3 % (0.0-0.8); Eosinophils # 0.2 10*3/uL (0.0-0.87); Eosinophils % 3.1 % (0.00-10.9); Hematocrit 26.5 VOL% (42.0-52.0); Hemoglobin 8.6 GM/DL (14.0-18.0); Immature Granulocytes % 0.6 %; Immature Granulocytes Absolute 0.05 #; Lymphocytes # 0.9 10*3/uL (1.4-4.0); Lymphocytes % 11.4 % (21.2-54.2); Mean Corpuscular HGB Conc 32.5 GM/DL (32-36); Mean Corpuscular Hemoglobin 30 PG (27-34); Mean Corpuscular Volume 92.7 FL (87-102); Monocytes # 0.7 10*3/uL (0.11-0.8); Monocytes % 9.3 % (1.7-12.7); Neutrophils # 5.8 10*3/uL (1.4-7.4); Neutrophils % 75.3 % (38.7-73.9); Platelet Count 395 T/CUMM (130-400); Red Blood Count 2.86 MC/CUMM (3.8-5.5); Red Cell Distribution Width 15.8 % (9.3-17.3); White Blood Count 7.7 T/CUMM (4-12)
[2017-05-08] MEDS: PIPERACILLIN/TAZOBACTAM 3,375 MG in SODIUM CHLORIDE 0.9% 100 ML IV SCH ×3 (05:40→22:30)
[2017-05-08 05:45] LABS: Calcium 7.4 MG/DL (8.5-10.1); Magnesium 1.9 MG/DL (1.8-2.4); Osmolality,Calculated 288.7 MOS/KG (273-304); Potassium 5.3 MMOL/L (3.5-5.1)
[2017-05-08] MEDS: CHOLESTYRAMINE 4 GM PACK PO SCH (09:19)
[2017-05-08] MEDS: LACTOBACILLUS ACIDOPHILUS/BULGARICUS CAPLET PO SCH (09:27)
[2017-05-08] MEDS: CARVEDILOL 25 MG TABLET PO SCH ×2 (09:27→22:06)
[2017-05-08] MEDS: ENOXAPARIN 40 MG/0.4 ML SYRINGE SUBCUT SCH (09:27)
[2017-05-08] MEDS: FUROSEMIDE 40 MG TABLET PO SCH (09:27)
[2017-05-08] MEDS: PANTOPRAZOLE 40 MG VIAL IV SCH (09:28)
[2017-05-08] MEDS: ASCORBIC ACID 500 MG TABLET PO SCH ×2 (13:37→21:36)
[2017-05-08] MEDS: fentaNYL 25 MCG/HR PATCH TRANSDERM SCH (15:51)
[2017-05-08] MEDS: INSULIN NPH/REGULAR 70/30 100 UNIT/ML SUBCUT SCH (16:29)
[2017-05-08] MEDS: INSULIN GLARGINE 100 UNIT/ML SUBCUT SCH (22:05)
[2017-05-08] MEDS: ONDANSETRON 4 MG TABLET PO SCH (22:06)
[2017-05-08] MEDS: SODIUM CHLOR 0.45% KCL 20 MEQ 20 MEQ/1,000 ML BAG IV SCH (22:31)
[2017-05-09] MEDS: ONDANSETRON 4 MG TABLET PO SCH ×3 (00:05→16:49)
[2017-05-09] MEDS: INSULIN LISPRO 100 UNIT/ML SUBCUT SCH ×6 (01:37→20:39)
[2017-05-09] MEDS: PIPERACILLIN/TAZOBACTAM 3,375 MG in SODIUM CHLORIDE 0.9% 100 ML IV SCH ×2 (04:56→13:40)
[2017-05-09 05:18] LABS: Basophils % 0.3 % (0.0-0.8); Eosinophils # 0.2 10*3/uL (0.0-0.87); Eosinophils % 3.1 % (0.00-10.9); Hematocrit 25.8 VOL% (42.0-52.0); Hemoglobin 8.4 GM/DL (14.0-18.0); Immature Granulocytes % 0.4 %; Immature Granulocytes Absolute 0.03 #; Lymphocytes # 0.9 10*3/uL (1.4-4.0); Lymphocytes % 13.3 % (21.2-54.2); Mean Corpuscular HGB Conc 32.6 GM/DL (32-36); Mean Corpuscular Hemoglobin 29 PG (27-34); Mean Corpuscular Volume 90.2 FL (87-102); Mean Platelet Volume 11.7 FL (9.6-12.0); Monocytes # 0.8 10*3/uL (0.11-0.8); Monocytes % 11.2 % (1.7-12.7); Neutrophils # 5.1 10*3/uL (1.4-7.4); Neutrophils % 71.7 % (38.7-73.9); Platelet Count 398 T/CUMM (130-400); Red Blood Count 2.86 MC/CUMM (3.8-5.5); Red Cell Distribution Width 15.4 % (9.3-17.3); White Blood Count 7.1 T/CUMM (4-12)
[2017-05-09 05:52] LABS: Calcium 7.6 MG/DL (8.5-10.1); Magnesium 1.9 MG/DL (1.8-2.4); Osmolality,Calculated 286.5 MOS/KG (273-304); Potassium 4.1 MMOL/L (3.5-5.1)
[2017-05-09 05:59] LABS: Risk Ratio 3.83; VLDL CHOLESTEROL 40.8 MG/DL
[2017-05-09] MEDS: ACETAMINOPHEN 325 MG TABLET PO PRN (09:16)
[2017-05-09] MEDS: CARVEDILOL 25 MG TABLET PO SCH ×2 (09:17→16:45)
[2017-05-09] MEDS: ASCORBIC ACID 500 MG TABLET PO SCH ×2 (09:17→20:38)
[2017-05-09] MEDS: ENOXAPARIN 40 MG/0.4 ML SYRINGE SUBCUT SCH (09:17)
[2017-05-09] MEDS: FUROSEMIDE 20 MG TABLET PO SCH (09:17)
[2017-05-09] MEDS: METOCLOPRAMIDE 10 MG/2 ML VIAL IV SCH (09:41)
[2017-05-09] MEDS: AMOXICILLIN/CLAV 875 MG TABLET PO SCH ×2 (16:45→20:38)
[2017-05-09] MEDS: hydrALAZINE 25 MG TABLET PO SCH (20:38)
[2017-05-09] MEDS: INSULIN GLARGINE 100 UNIT/ML SUBCUT SCH (20:39)
[2017-05-10] MEDS: INSULIN LISPRO 100 UNIT/ML SUBCUT SCH ×7 (00:24→19:32)
[2017-05-10] MEDS: ONDANSETRON 4 MG/2 ML VIAL IV PRN (00:40)
[2017-05-10] MEDS: ACETAMINOPHEN 325 MG TABLET PO PRN ×2 (00:41→09:48)
[2017-05-10] MEDS: hydrALAZINE 20 MG/1 ML VIAL IV PRN (05:08)
[2017-05-10] MEDS: ONDANSETRON 4 MG TABLET PO SCH ×3 (05:08→16:30)
[2017-05-10 06:37] LABS: Basophils % 0.3 % (0.0-0.8); Eosinophils # 0.2 10*3/uL (0.0-0.87); Eosinophils % 3.5 % (0.00-10.9); Hematocrit 29.6 VOL% (42.0-52.0); Hemoglobin 9.6 GM/DL (14.0-18.0); Immature Granulocytes % 0.7 %; Immature Granulocytes Absolute 0.05 #; Lymphocytes # 1.1 10*3/uL (1.4-4.0); Lymphocytes % 16.6 % (21.2-54.2); Mean Corpuscular HGB Conc 32.4 GM/DL (32-36); Mean Corpuscular Hemoglobin 29 PG (27-34); Mean Corpuscular Volume 90.5 FL (87-102); Monocytes # 0.7 10*3/uL (0.11-0.8); Monocytes % 10.1 % (1.7-12.7); Neutrophils # 4.7 10*3/uL (1.4-7.4); Neutrophils % 68.8 % (38.7-73.9); Platelet Count 434 T/CUMM (130-400); Red Blood Count 3.27 MC/CUMM (3.8-5.5); Red Cell Distribution Width 15.4 % (9.3-17.3); White Blood Count 6.9 T/CUMM (4-12)
[2017-05-10 07:02] LABS: Calcium 7.7 MG/DL (8.5-10.1); Magnesium 1.7 MG/DL (1.8-2.4); Osmolality,Calculated 281.5 MOS/KG (273-304); Potassium 3.9 MMOL/L (3.5-5.1)
[2017-05-10] MEDS: INSULIN NPH/REGULAR 70/30 100 UNIT/ML SUBCUT SCH (09:40)
[2017-05-10] MEDS: CARVEDILOL 25 MG TABLET PO SCH ×2 (09:40→16:29)
[2017-05-10] MEDS: hydrALAZINE 25 MG TABLET PO SCH ×2 (09:41→21:04)
[2017-05-10] MEDS: ENOXAPARIN 40 MG/0.4 ML SYRINGE SUBCUT SCH (09:42)
[2017-05-10] MEDS: FUROSEMIDE 20 MG TABLET PO SCH (09:42)
[2017-05-10] MEDS ORDERED: CALCIUM GLUCONATE 1,000 MG in SODIUM CHLORIDE 0.9% 100 ML IV ONE (09:42)
[2017-05-10] MEDS: AMOXICILLIN/CLAV 875 MG TABLET PO SCH ×2 (09:42→21:04)
[2017-05-10] MEDS: ASCORBIC ACID 500 MG TABLET PO SCH ×2 (09:42→21:03)
[2017-05-10] MEDS: METOCLOPRAMIDE 10 MG/2 ML VIAL IV SCH (11:38)
[2017-05-10] MEDS ORDERED: HYDROmorphone 2 MG/1 ML VIAL IV ONE (14:10)
[2017-05-11] MEDS: INSULIN LISPRO 100 UNIT/ML SUBCUT SCH ×4 (00:57→12:07)
[2017-05-11] MEDS: ONDANSETRON 4 MG TABLET PO SCH ×2 (00:57→08:31)
[2017-05-11 07:50] LABS: Basophils % 0.2 % (0.0-0.8); Eosinophils # 0.2 10*3/uL (0.0-0.87); Eosinophils % 2.9 % (0.00-10.9); Hematocrit 29.6 VOL% (42.0-52.0); Hemoglobin 9.8 GM/DL (14.0-18.0); Immature Granulocytes % 0.5 %; Immature Granulocytes Absolute 0.04 #; Lymphocytes # 1.6 10*3/uL (1.4-4.0); Lymphocytes % 18.6 % (21.2-54.2); Mean Corpuscular HGB Conc 33.1 GM/DL (32-36); Mean Corpuscular Hemoglobin 30 PG (27-34); Mean Corpuscular Volume 90.8 FL (87-102); Mean Platelet Volume 11.6 FL (9.6-12.0); Monocytes # 1.1 10*3/uL (0.11-0.8); Monocytes % 12.5 % (1.7-12.7); Neutrophils # 5.5 10*3/uL (1.4-7.4); Neutrophils % 65.3 % (38.7-73.9); Platelet Count 416 T/CUMM (130-400); Red Blood Count 3.26 MC/CUMM (3.8-5.5); Red Cell Distribution Width 15.5 % (9.3-17.3); White Blood Count 8.4 T/CUMM (4-12)
[2017-05-11 08:24] LABS: Magnesium 1.9 MG/DL (1.8-2.4); Osmolality,Calculated 281.4 MOS/KG (273-304); Potassium 4.1 MMOL/L (3.5-5.1)
[2017-05-11] MEDS: INSULIN NPH/REGULAR 70/30 100 UNIT/ML SUBCUT SCH (08:27)
[2017-05-11] MEDS: CARVEDILOL 25 MG TABLET PO SCH (08:28)
[2017-05-11] MEDS: hydrALAZINE 25 MG TABLET PO SCH (08:28)
[2017-05-11] MEDS: AMOXICILLIN/CLAV 875 MG TABLET PO SCH (08:28)
[2017-05-11] MEDS: fentaNYL 25 MCG/HR PATCH TRANSDERM SCH (08:29)
[2017-05-11] MEDS: ENOXAPARIN 40 MG/0.4 ML SYRINGE SUBCUT SCH (08:30)
[2017-05-11] MEDS: FUROSEMIDE 20 MG TABLET PO SCH (08:30)
[2017-05-11] MEDS: ASCORBIC ACID 500 MG TABLET PO SCH (08:30)
[2017-05-11 12:05] VITALS: BP 148/78
[2017-05-11] MEDS ORDERED: INSULIN NPH/REGULAR 70/30 100 UNIT/ML SUBCUT SCH (16:30)
== END 2017-05-11 15:00 | disposition home or self-care (01) | DRG 335 ==
LOC: N.ED 17:38 → SUATTDRO 21:32 → N.EDINP 21:32 → N.3E 04-25 13:07 → N.TELES 05-03 17:49 → N.2E 05-08 16:48
PROVIDERS: ADMIT Internal Medicine; ATTEND Hospitalist

== ENCOUNTER 2017-09-29 15:13 | Inpatient (IN) ==
[2017-09-29] MEDS ORDERED: ALBUTEROL/IPRATROPIUM 3 ML NEB RESP TX STA (16:59)
[2017-09-29] MEDS ORDERED: methylPREDNISolone SOD SUC 125 MG/2 ML VIAL IV STA (16:59)
[2017-09-29 17:22] LABS: Basophils # 0.1 10*3/uL (0.0-0.2); Basophils % 0.9 % (0.0-0.8); Eosinophils # 0.4 10*3/uL (0.0-0.87); Eosinophils % 6.1 % (0.00-10.9); Hematocrit 37.5 VOL% (42.0-52.0); Hemoglobin 11.8 GM/DL (14.0-18.0); Immature Granulocytes % 0.2 %; Immature Granulocytes Absolute 0.01 #; Lymphocytes # 1.3 10*3/uL (1.4-4.0); Lymphocytes % 20.4 % (21.2-54.2); Mean Corpuscular HGB Conc 31.5 GM/DL (32-36); Mean Corpuscular Hemoglobin 29 PG (27-34); Mean Corpuscular Volume 92.4 FL (87-102); Mean Platelet Volume 12.8 FL (9.6-12.0); Monocytes # 0.5 10*3/uL (0.11-0.8); Monocytes % 6.9 % (1.7-12.7); Neutrophils # 4.3 10*3/uL (1.4-7.4); Neutrophils % 65.5 % (38.7-73.9); Platelet Count 224 T/CUMM (130-400); Red Blood Count 4.06 MC/CUMM (3.8-5.5); Red Cell Distribution Width 14.3 % (9.3-17.3); White Blood Count 6.5 T/CUMM (4-12)
[2017-09-29 17:34] LABS: INR 0.9; PT Patient Result 9.8 SECS; Partial Thromboplastin Time 26.6 SECS (0-40)
[2017-09-29 17:35] LABS: Alanine Aminotransferase 27 U/L (16-61); Albumin 3.8 G/DL (3.4-5.0); Alkaline Phosphatase 121 U/L (45-117); Aspartate Amino Transferase 30 U/L (0-37); Blood Urea Nitrogen 26 MG/DL (7-18); Calcium 9.1 MG/DL (8.5-10.1); Glucose 125 MG/DL (74-106); Osmolality,Calculated 284.4 MOS/KG (273-304); Potassium 4.4 MMOL/L (3.5-5.1); Sodium 140 MMOL/L (136-145); Total Protein 7.6 G/DL (6.4-8.3); Troponin I Only < 0.015 NG/ML (0.00-0.045)
[2017-09-29] MEDS ORDERED: methylPREDNISolone SOD SUC 125 MG/2 ML VIAL ONE (17:50)
[2017-09-29] MEDS ORDERED: MAGNESIUM SULF RIDER 2 GM in PREMIX 1 EACH IV PRN (20:02)
[2017-09-29] MEDS ORDERED: GLUCAGON 1 MG VIAL IM PRN ×2 (20:02)
[2017-09-29] MEDS ORDERED: DEXTROSE 50% 25 GM/50 ML VIAL IV PRN ×2 (20:02)
[2017-09-29] MEDS ORDERED: MAGNESIUM SULF RIDER 4 GM in PREMIX 1 EACH IV PRN (20:02)
[2017-09-29] MEDS ORDERED: ACETAMINOPHEN 325 MG TABLET PO PRN (20:02)
[2017-09-29] MEDS ORDERED: ONDANSETRON 4 MG/2 ML VIAL IV PRN (20:02)
[2017-09-29] MEDS ORDERED: hydrALAZINE 20 MG/1 ML VIAL IV PRN (20:25)
[2017-09-29] MEDS ORDERED: ALBUTEROL/IPRATROPIUM 3 ML NEB RESP TX PRN (20:27)
[2017-09-29] MEDS: FUROSEMIDE 40 MG/4 ML VIAL IV SCH (20:33)
[2017-09-29] MEDS: hydrALAZINE 25 MG TABLET PO SCH (21:04)
[2017-09-29] MEDS: INSULIN REGULAR 100 UNIT/ML SUBCUT SCH (21:04)
[2017-09-29] MEDS: CARVEDILOL 25 MG TABLET PO SCH (21:04)
[2017-09-30 02:15] LABS: Barbiturates Screen,Urine Negative (Negative); Benzodiazepines Screen,Urine Negative (Negative); Cannabinoid Screen,Urine Negative (Negative); Opiate Screen,Urine Negative (Negative); Phencyclidine Screen,Urine Negative (Negative)
[2017-09-30 04:17] LABS: Basophils % 0.2 % (0.0-0.8); Hematocrit 33.4 VOL% (42.0-52.0); Hemoglobin 11.1 GM/DL (14.0-18.0); Immature Granulocytes % 0.6 %; Immature Granulocytes Absolute 0.05 #; Lymphocytes # 0.3 10*3/uL (1.4-4.0); Lymphocytes % 3.5 % (21.2-54.2); Mean Corpuscular HGB Conc 33.2 GM/DL (32-36); Mean Corpuscular Hemoglobin 29 PG (27-34); Mean Corpuscular Volume 87.9 FL (87-102); Mean Platelet Volume 13.5 FL (9.6-12.0); Monocytes # 0.1 10*3/uL (0.11-0.8); Neutrophils # 7.8 10*3/uL (1.4-7.4); Neutrophils % 94.7 % (38.7-73.9); Platelet Count 182 T/CUMM (130-400); Red Cell Distribution Width 14.3 % (9.3-17.3); White Blood Count 8.2 T/CUMM (4-12)
[2017-09-30 05:36] LABS: Band Neutrophils 2 % (0-10); Hypochromasia 1+; Lymphocytes 2 % (20-55); Platelet Estimate Normal; Segmented Neutrophils 96 % (50-85); Total Cells Counted 100
[2017-09-30 06:01] LABS: Alanine Aminotransferase 24 U/L (16-61); Albumin 3.4 G/DL (3.4-5.0); Alkaline Phosphatase 110 U/L (45-117); Aspartate Amino Transferase 15 U/L (0-37); Bilirubin,Total < 0.39 MG/DL (0.2-1.0); Blood Urea Nitrogen 36 MG/DL (7-18); Calcium 8.8 MG/DL (8.5-10.1); Glucose 472 MG/DL (74-106); Osmolality,Calculated 301.8 MOS/KG (273-304); Potassium 4.7 MMOL/L (3.5-5.1); Sodium 137 MMOL/L (136-145); Total Protein 6.2 G/DL (6.4-8.3)
[2017-09-30] MEDS ORDERED: INSULIN NPH/REGULAR 70/30 100 UNIT/ML SUBCUT SCH ×2 (07:30→16:30)
[2017-09-30] MEDS: INSULIN REGULAR 100 UNIT/ML SUBCUT SCH ×2 (08:09→12:05)
[2017-09-30] MEDS: FUROSEMIDE 40 MG/4 ML VIAL IV SCH (08:10)
[2017-09-30] MEDS: hydrALAZINE 25 MG TABLET PO SCH (08:10)
[2017-09-30] MEDS: CARVEDILOL 25 MG TABLET PO SCH (08:10)
[2017-09-30] MEDS ORDERED: PANTOPRAZOLE 40 MG TABLET PO SCH (09:00)
[2017-09-30] MEDS ORDERED: ENOXAPARIN 40 MG/0.4 ML SYRINGE SUBCUT SCH (09:00)
[2017-09-30 12:05] VITALS: BP 115/66
== END 2017-09-30 15:10 | disposition home or self-care (01) | DRG 291 ==
LOC: N.ED 15:13 → N.EDINP 19:18 → N.5E 20:32
PROVIDERS: ADMIT Internal Medicine; ATTEND Internal Medicine

== ENCOUNTER 2018-07-03 08:19 | Inpatient (IN) ==
[2018-07-03] MEDS ORDERED: FUROSEMIDE 100 MG/10 ML VIAL IV STA (08:41)
[2018-07-03] MEDS ORDERED: hydrALAZINE 20 MG/1 ML VIAL IV STA (08:42)
[2018-07-03 09:04] LABS: Basophils # 0.1 10*3/uL (0.0-0.2); Basophils % 0.7 % (0.0-0.8); Eosinophils # 0.8 10*3/uL (0.0-0.87); Eosinophils % 10.6 % (0.00-10.9); Hematocrit 35.2 VOL% (42.0-52.0); Hemoglobin 11.1 GM/DL (14.0-18.0); Immature Granulocytes % 0.3 %; Immature Granulocytes Absolute 0.02 #; Lymphocytes # 1.2 10*3/uL (1.4-4.0); Lymphocytes % 16.5 % (21.2-54.2); Mean Corpuscular HGB Conc 31.5 GM/DL (32-36); Mean Corpuscular Hemoglobin 29 PG (27-34); Mean Platelet Volume 11.5 FL (9.6-12.0); Monocytes # 0.6 10*3/uL (0.11-0.8); Neutrophils # 4.5 10*3/uL (1.4-7.4); Neutrophils % 63.9 % (38.7-73.9); Platelet Count 186 T/CUMM (130-400); Red Blood Count 3.87 MC/CUMM (3.8-5.5); Red Cell Distribution Width 14.1 % (9.3-17.3); White Blood Count 7.1 T/CUMM (4-12)
[2018-07-03 09:12] LABS: INR 0.9; PT Patient Result 9.7 SECS; Partial Thromboplastin Time 26.1 SECS (0-40)
[2018-07-03 09:16] LABS: Apearance,Urine CLEAR (Clear); Bilirubin,Urine Negative (Negative); Blood, Urine Small mg/dL (Negative); Glucose,Urine (UA) 50 mg/dL (Negative); Ketones,Urine Negative (Negative); Mucus,Urine Occasional /LPF (Occasional); Nitrite,Urine Negative (Negative); Protein,Urine 100 MG/DL; RBC,Urine 1 /HPF (0-4); Urine Color Straw (Yellow); Urine Specific Gravity 1.008 (1.001-1.035); Urine Urobilinogen < 2.0 EU/DL (0.2-1.0); WBC,Urine <1 /HPF (0-6)
[2018-07-03 09:26] LABS: Alanine Aminotransferase 22 U/L (16-61); Albumin 3.4 G/DL (3.4-5.0); Alkaline Phosphatase 116 U/L (45-117); Aspartate Amino Transferase 13 U/L (0-37); Bilirubin,Total < 0.39 MG/DL (0.2-1.0); Blood Urea Nitrogen 27 MG/DL (7-18); Calcium 8.4 MG/DL (8.5-10.1); Glucose 77 MG/DL (74-106); Osmolality,Calculated 282.4 MOS/KG (273-304); Potassium 4.3 MMOL/L (3.5-5.1); Sodium 140 MMOL/L (136-145); Total Protein 6.8 G/DL (6.4-8.3)
[2018-07-03] MEDS ORDERED: ONDANSETRON 4 MG/2 ML VIAL IV PRN (11:19)
[2018-07-03] MEDS ORDERED: OXYMETAZOLINE 0.05% NASAL SPRAY 15 ML BOTTLE BOTH NARES PRN (11:22)
[2018-07-03] MEDS ORDERED: ALBUTEROL/IPRATROPIUM 3 ML NEB RESP TX PRN (11:27)
[2018-07-03] MEDS: FUROSEMIDE 40 MG/4 ML VIAL IV SCH (15:44)
[2018-07-03] MEDS ORDERED: GLUCAGON 1 MG VIAL IM PRN (17:03)
[2018-07-03] MEDS ORDERED: DEXTROSE 50% 25 GM/50 ML VIAL IV PRN (17:03)
[2018-07-03 17:49] LABS: Troponin I 0.037 NG/ML (0.00-0.045)
[2018-07-03] MEDS: INSULIN LISPRO 100 UNIT/ML SUBCUT SCH (21:07)
[2018-07-03] MEDS: KETOROLAC 0.5% OPH SOLN 3 ML BOTTLE BOTH EYES SCH (21:08)
[2018-07-03] MEDS: prednisoLONE ACETATE 1% OPH SUSP 5 ML BOTTLE BOTH EYES SCH (21:09)
[2018-07-03] MEDS: BRIMONIDINE TART BOTH EYES SCH (21:09)
[2018-07-03] MEDS: BRINZOLAMIDE BOTH EYES SCH (21:09)
[2018-07-03] MEDS: LATANOPROST 0.005% OPH SOLN 2.5 ML BOTTLE BOTH EYES SCH (21:10)
[2018-07-04 00:03] LABS: Troponin I 0.043 NG/ML (0.00-0.045)
[2018-07-04 06:59] LABS: Basophils # 0.1 10*3/uL (0.0-0.2); Basophils % 0.8 % (0.0-0.8); Eosinophils # 0.7 10*3/uL (0.0-0.87); Eosinophils % 11.4 % (0.00-10.9); Hematocrit 34.1 VOL% (42.0-52.0); Immature Granulocytes % 0.3 %; Immature Granulocytes Absolute 0.02 #; Lymphocytes # 1.4 10*3/uL (1.4-4.0); Lymphocytes % 21.9 % (21.2-54.2); Mean Corpuscular HGB Conc 32.3 GM/DL (32-36); Mean Corpuscular Hemoglobin 29 PG (27-34); Mean Corpuscular Volume 89.3 FL (87-102); Mean Platelet Volume 12.1 FL (9.6-12.0); Monocytes # 0.6 10*3/uL (0.11-0.8); Monocytes % 9.4 % (1.7-12.7); Neutrophils # 3.6 10*3/uL (1.4-7.4); Neutrophils % 56.2 % (38.7-73.9); Platelet Count 183 T/CUMM (130-400); Red Blood Count 3.82 MC/CUMM (3.8-5.5); Red Cell Distribution Width 14.2 % (9.3-17.3); White Blood Count 6.4 T/CUMM (4-12)
[2018-07-04 07:21] LABS: Eosinophils 14 % (0-10); Hypochromasia 1+; Lymphocytes 24 % (20-55); Microcytosis 1+; Platelet Estimate Adequate; Segmented Neutrophils 56 % (50-85); Total Cells Counted 100
[2018-07-04 07:57] LABS: Osmolality,Calculated 288.8 MOS/KG (273-304); Potassium 3.9 MMOL/L (3.5-5.1); Risk Ratio 3.67; VLDL CHOLESTEROL 14.8 MG/DL
[2018-07-04] MEDS: INSULIN LISPRO 100 UNIT/ML SUBCUT SCH ×4 (09:35→21:02)
[2018-07-04] MEDS: INSULIN NPH/REGULAR 70/30 100 UNIT/ML SUBCUT SCH (09:35)
[2018-07-04] MEDS: BRINZOLAMIDE BOTH EYES SCH ×2 (09:36→21:05)
[2018-07-04] MEDS: BRIMONIDINE TART BOTH EYES SCH ×2 (09:36→21:05)
[2018-07-04] MEDS: FUROSEMIDE 40 MG/4 ML VIAL IV SCH ×2 (09:36→17:37)
[2018-07-04] MEDS: KETOROLAC 0.5% OPH SOLN 3 ML BOTTLE BOTH EYES SCH ×2 (09:37→21:05)
[2018-07-04] MEDS: PANTOPRAZOLE 40 MG TABLET PO SCH (09:37)
[2018-07-04] MEDS: prednisoLONE ACETATE 1% OPH SUSP 5 ML BOTTLE BOTH EYES SCH ×2 (09:39→21:05)
[2018-07-04] MEDS ORDERED: INSULIN NPH/REGULAR 70/30 100 UNIT/ML SUBCUT SCH (21:00)
[2018-07-04] MEDS: LATANOPROST 0.005% OPH SOLN 2.5 ML BOTTLE BOTH EYES SCH (21:05)
[2018-07-05 06:54] LABS: Basophils # 0.1 10*3/uL (0.0-0.2); Basophils % 0.7 % (0.0-0.8); Eosinophils # 0.7 10*3/uL (0.0-0.87); Eosinophils % 10.6 % (0.00-10.9); Hematocrit 34.8 VOL% (42.0-52.0); Immature Granulocytes % 0.1 %; Immature Granulocytes Absolute 0.01 #; Lymphocytes # 1.2 10*3/uL (1.4-4.0); Lymphocytes % 16.5 % (21.2-54.2); Mean Corpuscular HGB Conc 31.6 GM/DL (32-36); Mean Corpuscular Hemoglobin 28 PG (27-34); Mean Corpuscular Volume 89.9 FL (87-102); Monocytes # 0.6 10*3/uL (0.11-0.8); Monocytes % 8.3 % (1.7-12.7); Neutrophils # 4.4 10*3/uL (1.4-7.4); Neutrophils % 63.8 % (38.7-73.9); Platelet Count 188 T/CUMM (130-400); Red Blood Count 3.87 MC/CUMM (3.8-5.5); Red Cell Distribution Width 14.3 % (9.3-17.3)
[2018-07-05 07:10] LABS: Calcium 8.4 MG/DL (8.5-10.1); Potassium 4.4 MMOL/L (3.5-5.1)
[2018-07-05] MEDS: PANTOPRAZOLE 40 MG TABLET PO SCH (10:13)
[2018-07-05] MEDS: FUROSEMIDE 40 MG/4 ML VIAL IV SCH (10:13)
[2018-07-05] MEDS: KETOROLAC 0.5% OPH SOLN 3 ML BOTTLE BOTH EYES SCH (10:18)
[2018-07-05] MEDS: BRINZOLAMIDE BOTH EYES SCH (10:18)
[2018-07-05] MEDS: BRIMONIDINE TART BOTH EYES SCH (10:18)
[2018-07-05] MEDS: INSULIN LISPRO 100 UNIT/ML SUBCUT SCH ×2 (10:19→11:24)
[2018-07-05] MEDS: INSULIN NPH/REGULAR 70/30 100 UNIT/ML SUBCUT SCH ×2 (10:20→11:24)
[2018-07-05] MEDS: prednisoLONE ACETATE 1% OPH SUSP 5 ML BOTTLE BOTH EYES SCH (10:20)
[2018-07-05 12:06] VITALS: BP 161/101
[2018-07-05] MEDS ORDERED: INSULIN LISPRO 100 UNIT/ML SUBCUT ONE (12:19)
== END 2018-07-05 14:50 | disposition home or self-care (01) | DRG 291 ==
LOC: N.ED 08:19 → N.EDINP 11:08 → N.5E 11:59
PROVIDERS: ADMIT Internal Medicine; ATTEND Internal Medicine

== ENCOUNTER 2019-05-31 14:12 | Inpatient (IN) ==
[2019-05-31] MEDS ORDERED: FUROSEMIDE 40 MG/4 ML VIAL IV STA (14:59)
[2019-05-31] MEDS ORDERED: ASPIRIN 325 MG TABLET PO STA (14:59)
[2019-05-31 15:10] LABS: Basophils % 0.2 % (0.0-0.8); Immature Granulocytes % 0.7 %; Immature Granulocytes Absolute 0.06 #; Lymphocytes # 0.2 10*3/uL (1.4-4.0); Lymphocytes % 2.7 % (21.2-54.2); Mean Corpuscular HGB Conc 31.4 GM/DL (32-36); Mean Corpuscular Volume 91.4 FL (87-102); Mean Platelet Volume 11.9 FL (9.6-12.0); Monocytes % 10.5 % (1.7-12.7); Neutrophils % 85.9 % (38.7-73.9); Platelet Count 188 T/CUMM (130-400); Red Blood Count 3.83 MC/CUMM (3.8-5.5); Red Cell Distribution Width 14.1 % (9.3-17.3); White Blood Count 8.4 T/CUMM (4-12)
[2019-05-31 15:17] LABS: PT Patient Result 10.6 SECS (9.6-12.2)
[2019-05-31 15:38] LABS: Alanine Aminotransferase 24 U/L (16-61); Albumin 3.4 G/DL (3.4-5.0); Alkaline Phosphatase 130 U/L (45-117); Aspartate Amino Transferase 19 U/L (0-37); Blood Urea Nitrogen 36 MG/DL (7-18); Estimated Glom Filtration Rate 27 ML/MIN; Glucose 208 MG/DL (74-106); Osmolality,Calculated 286.8 MOS/KG (273-304); Total Protein 7.4 G/DL (6.4-8.3)
[2019-05-31 15:39] LABS: Troponin I 0.099 NG/ML (0.00-0.045)
[2019-05-31 16:16] LABS: Band Neutrophils 1 % (0-10); Lymphocytes 3 % (20-55); Segmented Neutrophils 91 % (50-85); Total Cells Counted 100
[2019-05-31 16:17] LABS: Anisocytosis Slight; Macrocytosis Slight; Platelet Estimate Normal; Polychromasia Slight
[2019-05-31 16:49] LABS: Amorphous Crystals,Urine Occasional /HPF (Few); Apearance,Urine Slightly Hazy (Clear); Bilirubin,Urine Negative (Negative); Blood, Urine Moderate mg/dL (Negative); Glucose,Urine (UA) >=500 mg/dL (Negative); Hyaline Casts,Urine 3 /LPF (0-3); Ketones,Urine 5 mg/dL (Negative); Nitrite,Urine Negative (Negative); Protein,Urine >=500 MG/DL; RBC,Urine 2 /HPF (0-4); Squamous Epithelial Cell,Urine Occasional /HPF (0-10); Urine Color Yellow (Yellow); Urine Specific Gravity 1.015 (1.001-1.035); Urine Urobilinogen < 2.0 EU/DL (0.2-1.0)
[2019-05-31 16:51] LABS: Barbiturates Screen,Urine Negative (Negative); Benzodiazepines Screen,Urine Negative (Negative); Cannabinoid Screen,Urine Negative (Negative); Opiate Screen,Urine Negative (Negative); Phencyclidine Screen,Urine Negative (Negative)
[2019-05-31] MEDS ORDERED: PROMETHAZINE 25 MG TABLET PO PRN (17:22)
[2019-05-31] MEDS ORDERED: MORPHINE 4 MG/1 ML VIAL IV PRN (17:22)
[2019-05-31] MEDS ORDERED: DEXTROSE 50% 25 GM/50 ML VIAL IV PRN (17:22)
[2019-05-31] MEDS ORDERED: GLUCAGON 1 MG VIAL IM PRN (17:22)
[2019-05-31] MEDS ORDERED: ZALEPLON 5 MG CAPSULE PO PRN (17:22)
[2019-05-31] MEDS ORDERED: ENOXAPARIN 80 MG/0.8 ML SYRINGE SUBCUT ONE (17:27)
[2019-05-31 18:11] LABS: ABG Base Excess 0.6 MMOL/L (-2.5-2.5); ABG Oxygen Saturation 98.5 % (95-100); ABG PH 7.466 (7.35-7.45); ABG TCO2 21.4 MMOL/L (23-27)
[2019-05-31] MEDS: carvediloL 6.25 MG TABLET PO SCH (21:31)
[2019-05-31] MEDS: ONDANSETRON 4 MG/2 ML VIAL IV PRN (21:31)
[2019-05-31] MEDS: BRINZOLAMIDE 1% OPH SUSP 10 ML BOTTLE RIGHT EYE SCH (21:31)
[2019-05-31] MEDS: ACETAMINOPHEN 325 MG TABLET PO PRN (21:31)
[2019-05-31] MEDS: INSULIN LISPRO 100 UNIT/ML SUBCUT SCH (21:34)
[2019-06-01] MEDS: FUROSEMIDE 40 MG/4 ML VIAL IV SCH ×2 (04:30→16:39)
[2019-06-01 06:11] LABS: Basophils % 0.2 % (0.0-0.8); Eosinophils % 0.2 % (0.00-10.9); Hematocrit 35.4 VOL% (42.0-52.0); Hemoglobin 11.2 GM/DL (14.0-18.0); Immature Granulocytes % 0.6 %; Immature Granulocytes Absolute 0.04 #; Lymphocytes # 0.3 10*3/uL (1.4-4.0); Lymphocytes % 5.2 % (21.2-54.2); Mean Corpuscular HGB Conc 31.6 GM/DL (32-36); Mean Corpuscular Volume 90.5 FL (87-102); Mean Platelet Volume 12.9 FL (9.6-12.0); Neutrophils % 81.8 % (38.7-73.9); Platelet Count 172 T/CUMM (130-400); Red Blood Count 3.91 MC/CUMM (3.8-5.5); Red Cell Distribution Width 14.3 % (9.3-17.3); White Blood Count 6.2 T/CUMM (4-12)
[2019-06-01] MEDS: ACETAMINOPHEN 325 MG TABLET PO PRN ×2 (06:24→22:29)
[2019-06-01] MEDS: ONDANSETRON 4 MG/2 ML VIAL IV PRN ×2 (06:27→16:43)
[2019-06-01 06:41] LABS: Calcium 8.8 MG/DL (8.5-10.1); Osmolality,Calculated 285.4 MOS/KG (273-304)
[2019-06-01] MEDS: INSULIN LISPRO 100 UNIT/ML SUBCUT SCH ×4 (09:39→22:31)
[2019-06-01] MEDS: carvediloL 6.25 MG TABLET PO SCH ×2 (09:40→22:29)
[2019-06-01] MEDS: POTASSIUM CHLORIDE 10 MEQ TABLET PO SCH (09:41)
[2019-06-01] MEDS: BRINZOLAMIDE 1% OPH SUSP 10 ML BOTTLE RIGHT EYE SCH ×3 (09:41→22:30)
[2019-06-01] MEDS: PANTOPRAZOLE 40 MG TABLET PO SCH (09:41)
[2019-06-01] MEDS ORDERED: OXYMETAZOLINE 0.05% NASAL SPRAY 15 ML BOTTLE BOTH NARES PRN (11:04)
[2019-06-01] MEDS: BRIMONIDINE 0.2% OPH SOLN 5 ML BOTTLE RIGHT EYE SCH ×2 (16:39→22:29)
[2019-06-01] MEDS: HEPARIN 5,000 UNIT/1 ML VIAL SUBCUT SCH (16:40)
[2019-06-01] MEDS: INSULIN NPH/REGULAR 70/30 100 UNIT/ML SUBCUT SCH (19:46)
[2019-06-01] MEDS: DULoxetine 30 MG CAPSULE PO SCH (22:29)
[2019-06-02] MEDS: ALBUTEROL 2.5 MG/3 ML NEB RESP TX PRN (01:42)
[2019-06-02] MEDS: FUROSEMIDE 40 MG/4 ML VIAL IV SCH ×2 (05:19→15:38)
[2019-06-02] MEDS: HEPARIN 5,000 UNIT/1 ML VIAL SUBCUT SCH ×2 (05:21→16:18)
[2019-06-02] MEDS: INSULIN NPH/REGULAR 70/30 100 UNIT/ML SUBCUT SCH ×2 (10:05→18:13)
[2019-06-02] MEDS: INSULIN LISPRO 100 UNIT/ML SUBCUT SCH ×4 (10:05→21:24)
[2019-06-02] MEDS: PANTOPRAZOLE 40 MG TABLET PO SCH (10:37)
[2019-06-02] MEDS: BRIMONIDINE 0.2% OPH SOLN 5 ML BOTTLE RIGHT EYE SCH ×3 (10:37→21:21)
[2019-06-02] MEDS: BRINZOLAMIDE 1% OPH SUSP 10 ML BOTTLE RIGHT EYE SCH ×3 (10:37→21:21)
[2019-06-02] MEDS: carvediloL 6.25 MG TABLET PO SCH (10:37)
[2019-06-02] MEDS: POTASSIUM CHLORIDE 10 MEQ TABLET PO SCH (10:37)
[2019-06-02] MEDS: ONDANSETRON 4 MG/2 ML VIAL IV PRN (10:47)
[2019-06-02 13:38] LABS: Osmolality,Calculated 302.1 MOS/KG (273-304)
[2019-06-02] MEDS ORDERED: INSULIN REGULAR 100 UNIT/ML IV ONE (13:48)
[2019-06-02] MEDS ORDERED: INSULIN LISPRO 100 UNIT/ML SUBCUT ONE (16:08)
[2019-06-02] MEDS: ONDANSETRON 4 MG/2 ML VIAL IV SCH ×2 (18:10→21:22)
[2019-06-02] MEDS: DULoxetine 30 MG CAPSULE PO SCH (21:21)
[2019-06-02] MEDS: carvediloL 3.125 MG TABLET PO SCH (21:21)
[2019-06-03] MEDS: ONDANSETRON 4 MG/2 ML VIAL IV SCH ×6 (04:03→21:27)
[2019-06-03] MEDS: FUROSEMIDE 40 MG/4 ML VIAL IV SCH ×2 (04:05→16:15)
[2019-06-03] MEDS: HEPARIN 5,000 UNIT/1 ML VIAL SUBCUT SCH ×2 (04:07→16:15)
[2019-06-03] MEDS: INSULIN LISPRO 100 UNIT/ML SUBCUT SCH ×3 (10:03→16:55)
[2019-06-03] MEDS: POTASSIUM CHLORIDE 10 MEQ TABLET PO SCH (10:03)
[2019-06-03] MEDS: PANTOPRAZOLE 40 MG TABLET PO SCH (10:03)
[2019-06-03] MEDS: BRINZOLAMIDE 1% OPH SUSP 10 ML BOTTLE RIGHT EYE SCH ×3 (10:04→21:26)
[2019-06-03] MEDS: BRIMONIDINE 0.2% OPH SOLN 5 ML BOTTLE RIGHT EYE SCH ×3 (10:04→21:26)
[2019-06-03] MEDS: INSULIN NPH/REGULAR 70/30 100 UNIT/ML SUBCUT SCH (10:04)
[2019-06-03] MEDS: carvediloL 3.125 MG TABLET PO SCH ×2 (10:04→21:34)
[2019-06-03 13:56] LABS: Protein/Creatinine Ratio,Urine 1.1 RATIO
[2019-06-03] MEDS ORDERED: PANTOPRAZOLE 40 MG TABLET PO SCH (21:00)
[2019-06-03] MEDS: DULoxetine 30 MG CAPSULE PO SCH (21:34)
[2019-06-04] MEDS: INSULIN NPH/REGULAR 70/30 100 UNIT/ML SUBCUT SCH ×3 (01:44→17:59)
[2019-06-04] MEDS: INSULIN LISPRO 100 UNIT/ML SUBCUT SCH ×5 (01:44→20:34)
[2019-06-04] MEDS: ONDANSETRON 4 MG/2 ML VIAL IV SCH ×6 (02:21→22:27)
[2019-06-04] MEDS: FUROSEMIDE 40 MG/4 ML VIAL IV SCH (05:19)
[2019-06-04 06:27] LABS: Basophils % 0.3 % (0.0-0.8); Hematocrit 37.9 VOL% (42.0-52.0); Hemoglobin 12.2 GM/DL (14.0-18.0); Immature Granulocytes % 0.3 %; Immature Granulocytes Absolute 0.01 #; Lymphocytes # 0.9 10*3/uL (1.4-4.0); Mean Corpuscular HGB Conc 32.2 GM/DL (32-36); Mean Corpuscular Volume 88.3 FL (87-102); Mean Platelet Volume 12.3 FL (9.6-12.0); Monocytes % 19.4 % (1.7-12.7); Platelet Count 138 T/CUMM (130-400); Red Blood Count 4.29 MC/CUMM (3.8-5.5); Red Cell Distribution Width 13.5 % (9.3-17.3); White Blood Count 3.2 T/CUMM (4-12)
[2019-06-04 06:46] LABS: Calcium 7.9 MG/DL (8.5-10.1); Osmolality,Calculated 298.2 MOS/KG (273-304); Risk Ratio 5.85; VLDL CHOLESTEROL 98.6 MG/DL
[2019-06-04 06:54] LABS: Band Neutrophils 1 % (0-10); Hypochromasia 1+; Lymphocytes 31 % (20-55); Platelet Estimate Normal; Segmented Neutrophils 43 % (50-85); Total Cells Counted 100
[2019-06-04] MEDS ORDERED: SODIUM CHLORIDE 0.9% 1,000 ML IV SCH (07:00)
[2019-06-04] MEDS ORDERED: traMADol 50 MG TABLET PO PRN (07:40)
[2019-06-04] MEDS ORDERED: AZITHROMYCIN INJ 250 MG in SODIUM CHLORIDE 0.9% 250 ML IV SCH (08:00)
[2019-06-04] MEDS: carvediloL 3.125 MG TABLET PO SCH ×2 (09:50→22:08)
[2019-06-04] MEDS: POTASSIUM CHLORIDE 10 MEQ TABLET PO SCH (09:50)
[2019-06-04] MEDS: AZITHROMYCIN INJ 250 MG in SODIUM CHLORIDE 0.9% 150 ML IV SCH (09:51)
[2019-06-04] MEDS: BRIMONIDINE 0.2% OPH SOLN 5 ML BOTTLE RIGHT EYE SCH ×3 (09:55→22:09)
[2019-06-04] MEDS: BRINZOLAMIDE 1% OPH SUSP 10 ML BOTTLE RIGHT EYE SCH ×3 (09:55→22:09)
[2019-06-04] MEDS ORDERED: propofoL 200 MG/20 ML VIAL IV ONE (10:00)
[2019-06-04] MEDS ORDERED: LIDOCAINE 2% 5 ML VIAL ONE (10:00)
[2019-06-04] MEDS: PROMETHAZINE INJ 25 MG in SODIUM CHLORIDE 0.9% 50 ML IV SCH ×3 (10:46→20:30)
[2019-06-04] MEDS: SODIUM CHLORIDE 0.9% 1,000 ML IV SCH (10:46)
[2019-06-04] MEDS: ALBUTEROL 2.5 MG/3 ML NEB RESP TX PRN (15:53)
[2019-06-04] MEDS: DULoxetine 30 MG CAPSULE PO SCH (22:08)
[2019-06-04] MEDS: ROSUVASTATIN 20 MG TABLET PO SCH (22:08)
[2019-06-04] MEDS: PANTOPRAZOLE 40 MG VIAL IV SCH (22:35)
[2019-06-05] MEDS: PROMETHAZINE INJ 25 MG in SODIUM CHLORIDE 0.9% 50 ML IV SCH ×4 (03:30→20:58)
[2019-06-05] MEDS: ONDANSETRON 4 MG/2 ML VIAL IV SCH ×6 (03:56→22:58)
[2019-06-05] MEDS: SODIUM CHLORIDE 0.9% 1,000 ML IV SCH (03:57)
[2019-06-05 05:45] LABS: Calcium 8.1 MG/DL (8.5-10.1)
[2019-06-05] MEDS: PANTOPRAZOLE 40 MG VIAL IV SCH (08:51)
[2019-06-05] MEDS: INSULIN LISPRO 100 UNIT/ML SUBCUT SCH ×4 (08:51→21:00)
[2019-06-05] MEDS: INSULIN NPH/REGULAR 70/30 100 UNIT/ML SUBCUT SCH ×2 (08:52→18:03)
[2019-06-05] MEDS: AZITHROMYCIN INJ 250 MG in SODIUM CHLORIDE 0.9% 150 ML IV SCH (08:53)
[2019-06-05] MEDS: POTASSIUM CHLORIDE 10 MEQ TABLET PO SCH (08:53)
[2019-06-05] MEDS: carvediloL 3.125 MG TABLET PO SCH ×2 (08:53→20:58)
[2019-06-05] MEDS: BRIMONIDINE 0.2% OPH SOLN 5 ML BOTTLE RIGHT EYE SCH ×3 (09:03→21:02)
[2019-06-05] MEDS: BRINZOLAMIDE 1% OPH SUSP 10 ML BOTTLE RIGHT EYE SCH ×3 (09:03→21:02)
[2019-06-05] MEDS: PANTOPRAZOLE 40 MG TABLET PO SCH (20:59)
[2019-06-05] MEDS: DULoxetine 30 MG CAPSULE PO SCH (20:59)
[2019-06-05] MEDS: ROSUVASTATIN 20 MG TABLET PO SCH (20:59)
[2019-06-06] MEDS: PROMETHAZINE INJ 25 MG in SODIUM CHLORIDE 0.9% 50 ML IV SCH ×4 (02:53→20:44)
[2019-06-06] MEDS: ONDANSETRON 4 MG/2 ML VIAL IV SCH ×6 (03:10→23:06)
[2019-06-06 05:30] LABS: Calcium 7.8 MG/DL (8.5-10.1); Osmolality,Calculated 298.7 MOS/KG (273-304)
[2019-06-06] MEDS ORDERED: AZITHROMYCIN INJ 250 MG in SODIUM CHLORIDE 0.9% 250 ML IV SCH (08:00)
[2019-06-06] MEDS: INSULIN NPH/REGULAR 70/30 100 UNIT/ML SUBCUT SCH ×2 (08:52→18:17)
[2019-06-06] MEDS: INSULIN LISPRO 100 UNIT/ML SUBCUT SCH ×4 (08:52→20:45)
[2019-06-06] MEDS: PANTOPRAZOLE 40 MG TABLET PO SCH ×2 (08:54→20:45)
[2019-06-06] MEDS: carvediloL 3.125 MG TABLET PO SCH ×2 (08:54→20:45)
[2019-06-06] MEDS: AZITHROMYCIN 40 MG/ML 15 ML/BOTTLE PO SCH (08:54)
[2019-06-06] MEDS: POTASSIUM CHLORIDE 10 MEQ TABLET PO SCH (08:54)
[2019-06-06] MEDS: BRINZOLAMIDE 1% OPH SUSP 10 ML BOTTLE RIGHT EYE SCH ×3 (08:56→20:45)
[2019-06-06] MEDS: BRIMONIDINE 0.2% OPH SOLN 5 ML BOTTLE RIGHT EYE SCH ×3 (08:56→20:45)
[2019-06-06] MEDS ORDERED: DEXTROSE 50% 25 GM/50 ML VIAL IV ONE (15:36)
[2019-06-06] MEDS: ROSUVASTATIN 20 MG TABLET PO SCH (20:45)
[2019-06-06] MEDS: DULoxetine 30 MG CAPSULE PO SCH (20:45)
[2019-06-07] MEDS: ONDANSETRON 4 MG/2 ML VIAL IV SCH ×4 (03:01→14:09)
[2019-06-07] MEDS: PROMETHAZINE INJ 25 MG in SODIUM CHLORIDE 0.9% 50 ML IV SCH ×3 (03:01→14:08)
[2019-06-07 05:48] LABS: Calcium 7.7 MG/DL (8.5-10.1); Osmolality,Calculated 300.3 MOS/KG (273-304)
[2019-06-07] MEDS: INSULIN LISPRO 100 UNIT/ML SUBCUT SCH ×2 (09:11→12:25)
[2019-06-07] MEDS: PANTOPRAZOLE 40 MG TABLET PO SCH (09:11)
[2019-06-07] MEDS: carvediloL 3.125 MG TABLET PO SCH (09:11)
[2019-06-07] MEDS: INSULIN NPH/REGULAR 70/30 100 UNIT/ML SUBCUT SCH (09:12)
[2019-06-07] MEDS: BRIMONIDINE 0.2% OPH SOLN 5 ML BOTTLE RIGHT EYE SCH ×2 (09:12→14:09)
[2019-06-07] MEDS: BRINZOLAMIDE 1% OPH SUSP 10 ML BOTTLE RIGHT EYE SCH ×2 (09:12→14:09)
[2019-06-07] MEDS: AZITHROMYCIN 40 MG/ML 15 ML/BOTTLE PO SCH (09:12)
[2019-06-07] MEDS: POTASSIUM CHLORIDE 10 MEQ TABLET PO SCH (09:15)
[2019-06-07 12:01] VITALS: BP 129/88
== END 2019-06-07 15:27 | disposition home or self-care (01) | DRG 291 ==
LOC: N.ED 14:12 → N.EDINP 17:22 → N.TELEN 17:47
PROVIDERS: ADMIT Hospitalist; ATTEND Hospitalist

== ENCOUNTER 2020-02-09 01:53 | Observation (INO) ==
[2020-02-09] MEDS ORDERED: FUROSEMIDE 40 MG/4 ML VIAL IV STA (02:17)
[2020-02-09 03:01] LABS: Basophils # 0.1 10*3/uL (0.0-0.2); Basophils % 0.6 % (0.0-0.8); Eosinophils # 0.4 10*3/uL (0.0-0.87); Eosinophils % 4.4 % (0.00-10.9); Hematocrit 33.2 VOL% (42.0-52.0); Hemoglobin 10.4 GM/DL (14.0-18.0); Immature Granulocytes % 0.2 %; Immature Granulocytes Absolute 0.02 #; Lymphocytes # 1.4 10*3/uL (1.4-4.0); Lymphocytes % 15.9 % (21.2-54.2); Mean Corpuscular HGB Conc 31.3 GM/DL (32-36); Mean Corpuscular Volume 90.7 FL (87-102); Mean Platelet Volume 11.4 FL (9.6-12.0); Monocytes % 6.6 % (1.7-12.7); Neutrophils % 72.3 % (38.7-73.9); Platelet Count 257 T/CUMM (130-400); Red Blood Count 3.66 MC/CUMM (3.8-5.5); Red Cell Distribution Width 14.8 % (9.3-17.3)
[2020-02-09 03:14] LABS: Alanine Aminotransferase 22 U/L (16-61); Albumin 3.5 G/DL (3.4-5.0); Alkaline Phosphatase 141 U/L (45-117); Aspartate Amino Transferase 23 U/L (0-37); Bilirubin,Total < 0.39 MG/DL (0.2-1.0); Blood Urea Nitrogen 30 MG/DL (7-18); Calcium 8.6 MG/DL (8.5-10.1); Estimated Glom Filtration Rate 32 ML/MIN; Glucose 96 MG/DL (74-106); Osmolality,Calculated 284.4 MOS/KG (273-304); Total Protein 7.3 G/DL (6.4-8.3)
[2020-02-09] MEDS ORDERED: ENOXAPARIN 30 MG/0.3 ML SYRINGE SUBCUT STA (04:24)
[2020-02-09 04:46] LABS: PT Patient Result 10.3 SECS (9.8-11.9)
[2020-02-09] MEDS ORDERED: ALUMINUM/MAGNES/SIMETH MAX STR 30 ML UDCUP PO PRN (05:11)
[2020-02-09] MEDS ORDERED: GLUCAGON 1 MG VIAL IM PRN (05:11)
[2020-02-09] MEDS ORDERED: ONDANSETRON 4 MG/2 ML VIAL IV PRN (05:11)
[2020-02-09] MEDS ORDERED: guaiFENesin/DM ER 600-30 MG TABLET PO PRN (05:11)
[2020-02-09] MEDS ORDERED: NICOTINE 21 MG/24 HR PATCH TRANSDERM PRN (05:11)
[2020-02-09] MEDS ORDERED: DEXTROSE 50% 25 GM/50 ML VIAL IV PRN (05:11)
[2020-02-09] MEDS ORDERED: hydrALAZINE 20 MG/1 ML VIAL IV PRN (05:11)
[2020-02-09] MEDS ORDERED: ACETAMINOPHEN 325 MG TABLET PO PRN (05:11)
[2020-02-09] MEDS ORDERED: ENOXAPARIN 80 MG/0.8 ML SYRINGE SUBCUT ONE (05:45)
[2020-02-09] MEDS: INSULIN REGULAR 100 UNIT/ML SUBCUT SCH ×3 (06:18→18:07)
[2020-02-09] MEDS: ALBUTEROL/IPRATROPIUM 3 ML NEB RESP TX SCH ×3 (06:59→19:14)
[2020-02-09 07:26] LABS: Alanine Aminotransferase 21 U/L (16-61); Albumin 3.7 G/DL (3.4-5.0); Alkaline Phosphatase 156 U/L (45-117); Aspartate Amino Transferase 22 U/L (0-37); Bilirubin,Direct < 0.100 MG/DL (0.0-0.20); Bilirubin,Indirect 0.7 MG/DL (0.0-1.0); Total Protein 7.9 G/DL (6.4-8.3)
[2020-02-09 07:33] LABS: Risk Ratio 1.81; Thyroid Stimulating Hormone 3.31 uIU/ml (0.358-3.74); VLDL CHOLESTEROL 22.4 MG/DL
[2020-02-09] MEDS ORDERED: SACUBITRIL/VALSARTAN 49-51 MG TABLET PO SCH ×3 (09:00→21:00)
[2020-02-09] MEDS ORDERED: carvediloL 12.5 MG TABLET PO SCH (09:00)
[2020-02-09] MEDS: ASPIRIN EC 81 MG TABLET PO SCH (09:45)
[2020-02-09] MEDS: POTASSIUM CHLORIDE 10 MEQ TABLET PO SCH (09:45)
[2020-02-09] MEDS: FUROSEMIDE 40 MG/4 ML VIAL IV SCH ×2 (09:46→16:45)
[2020-02-09] MEDS: OXYMETAZOLINE 0.05% NASAL SPRAY 15 ML BOTTLE BOTH NARES SCH ×2 (09:51→20:56)
[2020-02-09] MEDS: MORPHINE 4 MG/1 ML VIAL IV PRN ×2 (09:51→21:44)
[2020-02-09 10:11] LABS: Hepatitis B Core IgM Quant 0.26 Index; Hepatitis B Surface Ag Quant < 0.10 Index; Hepatitis B Surface Ag Result Negative (Negative); Hepatitis C Virus Ab Quant 0.06 Index; Hepatitis C Virus Ab Result Negative (Negative)
[2020-02-09 10:39] LABS: Troponin I 0.052 NG/ML (0.00-0.045)
[2020-02-09 15:38] LABS: Apearance,Urine CLEAR (Clear); Bacteria,Urine Occasional /HPF (Few); Bilirubin,Urine Negative (Negative); Blood, Urine Negative (Negative); Glucose,Urine (UA) Negative (Negative); Hyaline Casts,Urine 1 /LPF (0-3); Ketones,Urine Negative (Negative); Nitrite,Urine Negative (Negative); Protein,Urine 100 MG/DL; RBC,Urine 1 /HPF (0-4); Urine Color Straw (Yellow); Urine Specific Gravity 1.009 (1.001-1.035); Urine Urobilinogen < 2.0 EU/DL (0.2-1.0)
[2020-02-09] MEDS: ENOXAPARIN 30 MG/0.3 ML SYRINGE SUBCUT SCH (16:52)
[2020-02-09] MEDS ORDERED: INSULIN NPH/REGULAR 70/30 100 UNIT/ML SUBCUT SCH (17:00)
[2020-02-09] MEDS: INSULIN GLARGINE 100 UNIT/ML SUBCUT SCH (20:54)
[2020-02-09] MEDS: LATANOPROST 0.005% OPH SOLN 2.5 ML BOTTLE BOTH EYES SCH (20:56)
[2020-02-09] MEDS: PANTOPRAZOLE 40 MG TABLET PO SCH (20:57)
[2020-02-09] MEDS: DULoxetine 30 MG CAPSULE PO SCH (20:57)
[2020-02-09] MEDS: carvediloL 25 MG TABLET PO SCH (20:57)
[2020-02-10] MEDS: INSULIN REGULAR 100 UNIT/ML SUBCUT SCH ×4 (00:39→18:14)
[2020-02-10] MEDS: ALBUTEROL/IPRATROPIUM 3 ML NEB RESP TX SCH ×4 (01:36→19:17)
[2020-02-10 04:01] LABS: Basophils % 0.5 % (0.0-0.8); Eosinophils # 0.4 10*3/uL (0.0-0.87); Eosinophils % 7.9 % (0.00-10.9); Hematocrit 26.5 VOL% (42.0-52.0); Hemoglobin 8.4 GM/DL (14.0-18.0); Immature Granulocytes % 0.4 %; Immature Granulocytes Absolute 0.02 #; Lymphocytes # 1.1 10*3/uL (1.4-4.0); Lymphocytes % 20.2 % (21.2-54.2); Mean Corpuscular HGB Conc 31.7 GM/DL (32-36); Mean Corpuscular Volume 88.9 FL (87-102); Monocytes % 9.7 % (1.7-12.7); Neutrophils % 61.3 % (38.7-73.9); Platelet Count 198 T/CUMM (130-400); Red Blood Count 2.98 MC/CUMM (3.8-5.5); Red Cell Distribution Width 14.8 % (9.3-17.3); White Blood Count 5.6 T/CUMM (4-12)
[2020-02-10 04:26] LABS: Calcium 7.6 MG/DL (8.5-10.1); Osmolality,Calculated 293.1 MOS/KG (273-304)
[2020-02-10 04:32] LABS: Hypochromasia 1+; Platelet Estimate Normal
[2020-02-10 04:33] LABS: Microcytosis 1+
[2020-02-10] MEDS ORDERED: INSULIN NPH/REGULAR 70/30 100 UNIT/ML SUBCUT SCH (08:00)
[2020-02-10 08:36] LABS: % Iron Saturation 8.1 % (18-50); Ferritin 33.8 ng/ml (26-388)
[2020-02-10 08:48] LABS: Basophils % 0.6 % (0.0-0.8); Eosinophils # 0.5 10*3/uL (0.0-0.87); Eosinophils % 7.2 % (0.00-10.9); Hematocrit 31.5 VOL% (42.0-52.0); Hemoglobin 9.7 GM/DL (14.0-18.0); Immature Granulocytes % 0.5 %; Immature Granulocytes Absolute 0.03 #; Lymphocytes # 0.8 10*3/uL (1.4-4.0); Lymphocytes % 12.5 % (21.2-54.2); Mean Corpuscular HGB Conc 30.8 GM/DL (32-36); Mean Corpuscular Volume 92.4 FL (87-102); Mean Platelet Volume 11.7 FL (9.6-12.0); Monocytes % 9.4 % (1.7-12.7); Neutrophils % 69.8 % (38.7-73.9); Platelet Count 260 T/CUMM (130-400); Red Blood Count 3.41 MC/CUMM (3.8-5.5); Red Cell Distribution Width 15.1 % (9.3-17.3); White Blood Count 6.3 T/CUMM (4-12)
[2020-02-10 09:19] LABS: Folate 8.6 NG/ML (5.4-24.0); Vitamin B12 534 PG/ML (211-911)
[2020-02-10] MEDS: FUROSEMIDE 40 MG/4 ML VIAL IV SCH (09:25)
[2020-02-10] MEDS: POTASSIUM CHLORIDE 10 MEQ TABLET PO SCH (09:27)
[2020-02-10] MEDS: OXYMETAZOLINE 0.05% NASAL SPRAY 15 ML BOTTLE BOTH NARES SCH ×2 (09:27→21:01)
[2020-02-10] MEDS: ASPIRIN EC 81 MG TABLET PO SCH (09:27)
[2020-02-10] MEDS: PANTOPRAZOLE 40 MG TABLET PO SCH ×2 (09:27→21:01)
[2020-02-10] MEDS: carvediloL 25 MG TABLET PO SCH ×2 (09:27→21:01)
[2020-02-10 09:50] LABS: Sedimentation Rate-Westergren 82 MM/HR (0-20)
[2020-02-10] MEDS: ENOXAPARIN 30 MG/0.3 ML SYRINGE SUBCUT SCH (15:14)
[2020-02-10] MEDS: DULoxetine 30 MG CAPSULE PO SCH (21:01)
[2020-02-10] MEDS: LATANOPROST 0.005% OPH SOLN 2.5 ML BOTTLE BOTH EYES SCH (21:01)
[2020-02-10] MEDS: INSULIN GLARGINE 100 UNIT/ML SUBCUT SCH (21:25)
[2020-02-11] MEDS: INSULIN REGULAR 100 UNIT/ML SUBCUT SCH ×3 (00:15→12:06)
[2020-02-11] MEDS: ALBUTEROL/IPRATROPIUM 3 ML NEB RESP TX SCH ×3 (00:40→13:15)
[2020-02-11 05:09] LABS: Basophils # 0.1 10*3/uL (0.0-0.2); Basophils % 0.7 % (0.0-0.8); Eosinophils # 0.8 10*3/uL (0.0-0.87); Eosinophils % 10.7 % (0.00-10.9); Hematocrit 31.2 VOL% (42.0-52.0); Hemoglobin 9.8 GM/DL (14.0-18.0); Immature Granulocytes % 0.3 %; Immature Granulocytes Absolute 0.02 #; Lymphocytes # 1.1 10*3/uL (1.4-4.0); Lymphocytes % 14.2 % (21.2-54.2); Mean Corpuscular HGB Conc 31.4 GM/DL (32-36); Mean Corpuscular Volume 91.2 FL (87-102); Mean Platelet Volume 12.1 FL (9.6-12.0); Monocytes % 9.6 % (1.7-12.7); Neutrophils % 64.5 % (38.7-73.9); Platelet Count 243 T/CUMM (130-400); Red Blood Count 3.42 MC/CUMM (3.8-5.5); White Blood Count 7.5 T/CUMM (4-12)
[2020-02-11 05:31] LABS: Calcium 7.9 MG/DL (8.5-10.1); Osmolality,Calculated 289.4 MOS/KG (273-304)
[2020-02-11 05:32] LABS: Calcium 7.9 MG/DL (8.5-10.1); Osmolality,Calculated 289.4 MOS/KG (273-304)
[2020-02-11] MEDS: carvediloL 25 MG TABLET PO SCH (09:01)
[2020-02-11] MEDS: PANTOPRAZOLE 40 MG TABLET PO SCH (09:01)
[2020-02-11] MEDS: OXYMETAZOLINE 0.05% NASAL SPRAY 15 ML BOTTLE BOTH NARES SCH (09:01)
[2020-02-11] MEDS: ASPIRIN EC 81 MG TABLET PO SCH (09:01)
[2020-02-11] MEDS: POTASSIUM CHLORIDE 10 MEQ TABLET PO SCH (09:01)
[2020-02-11 11:06] LABS: Hemoglobin A1 (Alkaline) 97.8 % (96.5-98.5); Hemoglobin A2 (Alkaline) 2.2 % (1.5-3.5)
[2020-02-11 16:21] VITALS: BP 120/82
[2020-02-11] MEDS: ENOXAPARIN 30 MG/0.3 ML SYRINGE SUBCUT SCH (16:39)
== END 2020-02-11 17:17 | disposition home or self-care (01) ==
LOC: N.EDINP 01:53 → N.ED 01:53 → SUATTDRO 05:11 → N.TELES 05:55
PROVIDERS: ADMIT Hospitalist; ATTEND Family Medicine